=== PATIENT | female | born 1945 | race Caucasian/White ===

== ENCOUNTER → 2018-05-12 06:06 | Outpatient (CLI) | payer MEDICARE, OTHER, SELFPAY ==
--- NOTE | 2018-05-12 06:30 | MRI_ITS ---
STUDY: MRI BRAIN WITH AND WITHOUT CONTRAST (ATTENTION INTERNAL AUDITORY CANALS - I.A.C.'s) REASON FOR EXAM: Female, 72 years old. Bilateral tinnitus, right side worse than left. TECHNIQUE: Standardized multiplanar fat and water weighted pulse sequences were obtained. Gadavist 10 IV was administered for the contrast portion of the examination. COMPARISON: None. FINDINGS: Normal bilateral temporal bones. Normal bilateral internal auditory canals. There is no demonstrated intracanalicular or cisternal vestibular schwannoma (acoustic neuroma). There is no enhancement of the bilateral VIIth or VIIIth cranial nerves. Normal bilateral cochlea, vestibules and semicircular canals. Normal size of the ventricles and extra-axial spaces for the patient's age. View of subcortical and periventricular white matter T2 FLAIR hyperintensity foci in both cerebral hemispheres are chronic white matter ischemic changes. Normal bilateral basal ganglia. Normal thalami. Normal flow voids within the major intracranial circulation suggesting patency by spin echo criteria. Normal venous enhancement. There is no enhancing intra-axial or extra-axial abnormality. There is no extra-axial fluid accumulation. Normal sella turcica, pituitary gland, infundibular stalk, optic chiasm and hypothalamus. Normal tectal plate and pineal gland. Normal midbrain, joey and medulla. Normal cerebellum. Normal basal cisterns. No demonstrated orbital abnormality, within the constraints of a routine brain study. Normal visualized paranasal sinuses. Normal calvarium and skull base. Normal visualized soft tissue structures. Normal visualized upper cervical spine. MRI/Brain W/WO Contrast IMPRESSION: 1. Normal unenhanced and enhanced MRI of the bilateral internal auditory canals (I.A.C's). 2. Few chronic white matter ischemic changes in both cerebral hemispheres. Electronically Signed: Dino Johns MD at 13:18 EST , Service support ,
[2018-05-12 06:46] LABS: CREATININE FINGERSTICK 0.9 mg/dL (0.55-1.02); EGFR FINGERSTICK > 60.0000 mL/min (>60)
== END ==
PROVIDERS: Referring Provider Otolaryngology Otolaryngology/Facial Plastic Surgery; Visit Provider Otolaryngology Otolaryngology/Facial Plastic Surgery
DX: H93.12 Tinnitus, left ear (principal)
CPT/HCPCS: 70553; A9585

== ENCOUNTER → 2020-03-21 14:50 | Outpatient (CLI) | payer MEDICARE, OTHER, SELFPAY ==
[2019-03-01 12:35] VITALS: BMI 37.5
--- NOTE | 2020-03-21 15:57 | CT_ITS ---
STUDY: CT RIGHT LOWER EXTREMITY REASON FOR EXAM: Osteoarthritis, surgical planning for knee arthroplasty. TECHNIQUE: Transaxial CT imaging of the lower extremity was performed. Coronal and sagittal images were reformatted. Individualized dose optimization techniques were used for this CT. COMPARISON: None. FINDINGS: Knee: Normal medial femoral condyle and medial tibial plateau. There are very small marginal osteophytes of the medial femorotibial compartment with preservation of the articular joint space of the medial knee compartment. There is mild subchondral cystic change of the posterior aspect of the lateral tibial plateau. There are small marginal osteophytes with preservation of the articular joint space of the lateral knee compartment. There are marginal osteophytes with severe joint space narrowing of the lateral femorotibial compartment (axial image 271) with mild subchondral cystic change of the lateral patellar facet. Normal proximal tibiofibular articulation. There is no joint effusion. The quadriceps tendon is grossly normal. The patellar tendon is grossly normal. Normal Hoffa''s fat pad. There is incidental vacuum phenomenon in the medial femorotibial compartment. Hip: There is preservation of the left hip joint space. Ankle: There is preservation of the tibiotalar, posterior subtalar, talonavicular and calcaneocuboid joint spaces. There is orthopedic hardware in the visualized medial cuneiform. There is mild distal Achilles calcific tendinitis (sagittal reconstructions 44, 45). CT/Extremity Lower without Contra IMPRESSION: Patellofemoral osteoarthritis. Electronically Signed: Temo Gallardo MD at 15:31 EST Tel , Service support ,
== END ==
PROVIDERS: PCP Internal Medicine; Referring Provider Orthopaedic Surgery; Visit Provider Orthopaedic Surgery
DX: M17.11 Unilateral primary osteoarthritis, right knee (principal)
CPT/HCPCS: 73700

== ENCOUNTER 2020-04-08 10:49 | Inpatient (IN) | payer MEDICARE, OTHER, SELFPAY ==
[2019-03-01 12:35] VITALS: BMI 37.5
[2020-03-21 17:02] LABS: Absolute Lymphocyte Count 1.64 X10^3/uL (0.83-4.51); Absolute Neutrophil Count 3.1 X10^3/uL (2.0-7.7); Basophil# 0.04 X10^3/uL; Basophil% 0.7 % (0-1); Eosinophil# 0.16 X10^3/uL; Hematocrit 40.2 % (37-47); Hemoglobin 13.4 g/dL (12.0-15.0); Lymphocyte # 1.64 X10^3/ul (4.0); Lymphocyte % 30.4 % (19-41); Mean Corp Hgb Conc 33.3 g/dL (32-36); Mean Corpuscular Hgb 33.2 pg (27.0-32.0); Mean Corpuscular Volume 99.5 fL (81-99); Mean Platelet Vol. 8.9 fl (6.2-12.0); Monocyte# 0.43 X10^3/uL; NRBC Flagged by Analyzer 0 % (0-5); Neutrophil # 3.12 X10^3/uL (2.7-7.7); Neutrophil % 57.7 % (47-70); Platelet Count 251 K/mm3 (150-450); RBC Distribution Width CV 12.2 % (11.6-14.6); RBC Distribution Width SD 44.3 fl (35.1-43.9); Red Blood Count 4.04 M/mm3 (4.2-5.4); White Blood Count 5.4 K/mm3 (4.4-11.0)
[2020-03-21 17:37] LABS: Anion Gap 3 (5-15); BUN 16 mg/dL (7-18); BUN/Creat Ratio 22.3 RATIO (10-20); Calcium,Total 9.4 mg/dL (8.5-10.1); Chloride 106 mmol/L (98-107); Creatinine, Serum 0.72 mg/dL (0.55-1.02); EST Glomerular Filtration Rate 84 mL/min (>60); Est Glom Filt Rate - Afr Amer 102 mL/min (>60); Glucose 107 mg/dL (74-106); Potassium 3.8 mmol/L (3.5-5.1); Sodium Level 140 mmol/L (136-145)
--- NOTE | 2020-03-24 18:54 | PCM.HP.BLA ---
History and Physical History and Physical Patient Name: Bryanna Wolf : 1945 From: CRISTEL RAMIREZ NP DATE OF SURGERY: 04/08/2020 SCHEDULED PROCEDURE: Right total knee arthroplasty HISTORY OF PRESENT ILLNESS: Preoperative history and physical exam was performed on March 21, 2020. This is a 74-year-old female who has been experiencing bilateral knee pain for years. The right knee pain is greater than the left. The pain is made worse with stairs, walking and sitting for prolonged periods of time. The patient reports stumbling secondary to the right knee pain. The patient reports an inability to perform activities of daily living due to the right knee pain. The pain is 5 on a scale of 10 on average. She describes the pain as constant. Previous conservative measures attempted consist of rest, ice, heat and elevation. The patient has attempted cortisone and viscosupplementation injections with no relief. She has participated informal physical therapy. Patient has a history of a right knee arthroscopy [place] [address] Graham Coronel. The patient has a medical history pertinent for hiatal hernia, iron deficiency anemia, coronary artery disease, sleep apnea with use of a CPAP and hypertension. She has a history of ulcers. The patient is currently being treated by Dr. Ronquillo for posterior tibial tendinitis. She wears braces on bilateral lower extremities. The patient lives alone and her daughter has had a recent back surgery and is unable to assist in the care of the patient. She denies chest pain, fevers, chills, shortness of breath, difficulty breathing or recent infections. Surgical clearance has been obtained from Dr. Snyder and Dr. Hinton. After failing conservative measures and discussing treatment options with Dr. Graham Coronel the patient does wish to proceed with a right total knee arthroplasty. REVIEW OF SYSTEMS: ROS: Const: Denies anorexia, anxiety, change in appetite, fever and weight change,hard of hearing, and vision problems. CV: Denies chest pain, heart murmur, irregular heartbeat and peripheral vascular disease. Resp: Denies asthma, cough, pneumonia, sleep apnea, SOB, tuberculosis and wheezing. GI: Reports heartburn(hiatal hernia), but denies constipation, diarrhea, nausea, bloody stools and vomiting, and difficulty swallowing. : Urinary: reports stress incontinence. Musculo: Denies leg swelling, trouble walking and weakness and limp. Skin: Denies Raynaud's, history of shingles and tattoo. Neuro: Reports ambulatory dysfunction and numbness/tingling but denies dizziness and tremor. Psych: Denies anxiety, depression, insomnia, mental illness and stress. Foreign/Lymph: Reports anemia, but denies bleeding/bruising tendency and past transfusion. Reviewed, no changes. PAST MEDICAL HISTORY: Advance Care Plan: Other Directive, LIVING WILL Effective Date: 04/30/2015 Other Directive, POA Effective Date: 04/30/2015 PMH: Medical Problems: Hiatal Hernia Anemic - Iron deficiency Coronary Artery Disease (CAD) - possibly Sleep Apnea - CPAP High Blood Pressure Accidents: Fracture - (1999) AVULSION FX LEFT ANKLE Surgical Hx: Hysterectomy - (1993) [facility] Bladder Repair - 1993,1996 [facility], 2006 [facility] - (09/12/2007) DR CORONEL AT [facility] RT Foot Bunion Removed - AND TENDON REPAIR LT Achilles Tendon Repair - (08/2012) [facility] Carpal Tunnel Release RT Right Knee Arthroscopy - (07/07/2013) [facility] Anesthesia Complications: Vomiting Assistive Devices: Glasses, Brace - RIGHT KNEE BRACE Reviewed and updated. SOCIAL HISTORY: SH: Marital: .Occupation: Retired.Work Status: Retired.Hand Dominance: Right-Handed. Personal Habits: Cigarette Use: Never.Alcohol: Denies use.Drug Use: Denies Use.Enjoy Exercising: Never Exercises. Reviewed and updated. VITALS: Ht: 62 Wt: 209lb Wt k.802 BMI: 38.2 BP: 150/70 Pulse: 70 Resp: 16 T: 97.4 T: 36.3C ALLERGIES: NSAIDS - Acid Reflex Demerol - Vomiting Meloxicam MEDICATIONS: Tramadol HCL 50 mg 1-2 by mouth every 6 hours as needed pain, Prilosec 20 mg 1 tab 2x daily, Vitamin D 4000 Units 1 tab twice A week, Iron 60 mg 1po qday, Amlodipine Besylate 2.5 mg 1 by mouth every day, Rosuvastatin Calcium 20 mg 1 by mouth every day, Furosemide 20 mg prn, Zinc 30 mg 1po qday, Multivitamins 1po qday, Aspirin 81 81 mg 1 pill daily PRE-OP EXAM: General appearance:NORMAL Other: Eyes: Conjunctivae and lids: NORMAL Pupils: ERR Ears, Nose, Mouth, and Throat: NORMAL Other: Inspection of lips, teeth and gums: NORMAL Other: Respiratory: Assessment of respiratory effort: NORMAL Other: Auscultation of lungs: clear to auscultation no wheezes, rhonchi or rales. Cardiovascular: Auscultation of heart: regular rate and rhythm, no murmurs, gallops or rubs. Gastrointestinal: Exam of abdomen: soft, nontender, nondistended bowel sounds present. Neurological: see below Psychiatric: Orientation to time, place and person: NORMAL Other: Mood and affect: NORMAL Other: PHYSICAL EXAMINATION: Skin is warm, dry and intact. Trace effusion. Medial joint line pain with palpation. Varus deformity. Range of motion 0 extension to 120 flexion. Positive medial Vickie. Negative Helio. Stable to varus and valgus stress testing. Sensation intact to light touch. IMAGING STUDIES: X-rays of right knee including AP standing, lateral and skyline views were obtained on May 31, 2019 revealing moderate medial and lateral osteoarthritis. MRI of right knee obtained on January 11, 2020 reveals grade 3?4 chondromalacia and spurring of the patellofemoral joint. Chronic tear of the lateral meniscus and horizontal tear of the medial meniscus. Grade 2?3 chondromalacia of the medial compartment with spurring. IMPRESSION: 1. Posttraumatic osteoarthritis, right knee 2. Hypertension 3. Obstructive sleep apnea with use of a CPAP 4. Iron deficiency anemia 5. History of ulcers 6. Hiatal hernia 7. Coronary artery disease 8. Bilateral posterior tibial tendinitis PLAN: Dr. Graham Coronel did discuss and review with the patient all treatment options including surgical versus nonsurgical. The patient does wish to proceed with the above-stated procedure. Potential risk, benefits and complications of the procedure were discussed in detail including but not limited to , infection, nerve and blood vessel damage, persistent pain, numbness, tingling, paresthesia, blood clot, pulmonary embolism and requirement for possible further surgery. The patient expressed full understanding and has no further questions for the doctor. The patient does agree to proceed with the above-stated procedure and has signed the surgery consent form. The patient does live alone. Her daughter has had recent back surgery and is unable to assist in the care of the patient. The patient does wish to have placement in a rehab facility following surgery due to concerns in caring for herself. Discussed with the patient the risks associated with the COVID-19 virus including the risk of exposure while at the hospital. The patient was reassured local hospitals have low infection rates and taken all necessary precautions to limit patient exposure to COVID-19. Limiting the patient's time in the hospital may decrease their exposure to COVID-19. The patient was notified that we will need to comply with any screening or testing the hospital wishes to perform and that surgery may be delayed for any positive test results. This dictation was created using voice recognition software. Phonetic and/or grammatical errors may exist. ___ I have re-examined the patient. There are no clinical changes since date of exam. ___ See progress notes for changes. ___ Dictated on admission Date: Time: Signature:
--- NOTE | 2020-03-25 11:50 | NURSING ---
Pt verbalizes she wants to obtain mandatory preop COVID test at outside facility. Pt instructed get COVID test 04/04 afternon or 04/05 morning. Instructed to fax results to [phone] before Day of surgery. Instructed to call [phone] if unable to get outside COVID test and we will schedule her here. Pt verbalizes understanding.
[2020-03-25 13:18] LABS: Magnesium 2.3 mg/dL (1.6-2.6)
[2020-04-08] VITALS (11 sets, daily range): BP systolic 121–136; BP diastolic 47–68; PULSE 55–83; RESP 16–18; TEMP 36.2–36.9; O2SAT 95–100; BMI 38.8
--- NOTE | 2020-04-08 | KNEE_PTH ---
PATIENT: CRYSTAL GIL LOC: MS3 U#:[id number] AGE/SX: 74/F ROOM: [facility] [place] RE04/09/[address]: Dr. Graham Coronel DO : 1945 BED: 1 DIS: 04/10/2020 SPEC #: [id number] RECD: 04/08/20 14:16 STATUS: MARYURI REHelen #: [id number] MICHEAL: 04/08/20 00:[address]: Graham Coronel DEPT: SURGICAL PATHOLOGY RECD BY: Ismael Stevenson ENTERED: 04/09/20 07:47 SP TYPE: TOTAL KNEE OTHR DR: Dr. Johana Hinton MD Tissues: Knee, NOS Procedures: Decalcification bone/plaque Surgery Specimen Level IV HEADER OPERATION: ERAS, total knee replacement robotic arm assist PRE-OP DIAGNOSIS: Posttraumatic osteoarthritis right knee TISSUE SUBMITTED: Bone and soft tissue right knee MICROSCOPIC DIAGNOSIS Bone and soft tissue of right knee, total knee resection: Severe degenerative joint disease. Mild synovial hyperplasia. AM:liza 04/12/2020 MICROSCOPIC DESCRIPTION Slides are reviewed. GROSS DESCRIPTION Received is one container designated bone and soft tissue right knee. The specimen consists of multiple fragments of broderick-yellow bone measuring in aggregate 9 x 9 x 3 cm. Also in the specimen container are multiple fragments of yellow-white soft tissue measuring in aggregate 9 x 7 x 3 cm. A number of bony fragments contain articular surfaces consistent with tibial plateau and femoral condyle and displaying prominent osteophyte formation and bone erosion. Production Control Pegboard Clerk sections are submitted in two cassettes as follows: 1 - soft tissue, 2 - bone after decalcification. / SJ:liza 04/09/20 TC:5 CPT: 02460, 32208
[2020-04-08] MEDS: Acetaminophen 500 MG Tablet 1000 MG PO ×2 (10:46→20:54)
[2020-04-08] MEDS: Gabapentin 600 MG Tablet PO (10:47)
[2020-04-08] MEDS: Lactated Ringers 1,000 ML 125 ML IV ×2 (10:57→13:30)
[2020-04-08] MEDS: Cefazolin 2 GM in 0.9% Normal Saline 100 ML IV (11:25)
--- NOTE | 2020-04-08 13:10 | PCM.OPRPT ---
Report of Operation Date of Procedure: 04/08/20 Pre-Operative Diagnosis: OA right knee Post-Operative Diagnosis: same Surgery/Procedure Performed:: right TKR c.o.d. audit clerk: Galen Zimmerman Type of Anesthesia:: Spinal Anesthesiologist: Samy Hubbard Specimen's removed: bone Estimated Blood Loss (mL): 20 cc Fluids Replaced: 1000 ml crystalloid - Admit VTE Documentation VTE Present on Admission: No VTE Mechan Device Prophylaxis: SCD's, Thigh High SANDHYA Hose VTE Pharm Prophylaxis ordered?: Yes
--- NOTE | 2020-04-08 14:00 | RAD_ITS ---
STUDY: X-RAY - RIGHT KNEE REASON FOR EXAM: Female, 74 years old. Post op right knee TECHNIQUE: 2 view(s) of the knee. COMPARISON: None. FINDINGS: Normal visualized distal femur. Normal visualized proximal tibia and fibula. Normal proximal tibiofibular articulation. The patient is status post right total knee replacement. There is good alignment. Postoperative soft tissue changes. RAD/Knee 1 or 2 Views IMPRESSION: Status post total right knee replacement with postoperative soft tissue changes. There is good alignment. Electronically Signed: Miguel Chisholm MD at 14:12 EST , Service support ,
[2020-04-08 14:41] LABS: Hemoglobin 12.2 g/dL (12.0-15.0); Mean Corp Hgb Conc 32.1 g/dL (32-36); Mean Corpuscular Hgb 31.8 pg (27.0-32.0); Mean Platelet Vol. 8.3 fl (6.2-12.0); Platelet Count 301 K/mm3 (150-450); RBC Distribution Width CV 11.9 % (11.6-14.6); RBC Distribution Width SD 43.1 fl (35.1-43.9); Red Blood Count 3.84 M/mm3 (4.2-5.4); White Blood Count 6.6 K/mm3 (4.4-11.0)
[2020-04-08 14:54] LABS: Anion Gap 7 (5-15); BUN 11 mg/dL (7-18); BUN/Creat Ratio 15.8 RATIO (10-20); Chloride 108 mmol/L (98-107); EST Glomerular Filtration Rate 87 mL/min (>60); Est Glom Filt Rate - Afr Amer 106 mL/min (>60); Estimated Creatinine Clearance 38.44 ml/min; Glucose 104 mg/dL (74-106); Potassium 4.2 mmol/L (3.5-5.1); Sodium Level 144 mmol/L (136-145)
[2020-04-08] MEDS: Lactated Ringers 1,000 ML 100 ML IV (16:15)
[2020-04-08] MEDS: Aspirin 81 MG TAB.CHEW PO (16:59)
[2020-04-08] MEDS: oxyCODONE 5 MG Tablet PO (16:59)
[2020-04-08] MEDS: Cefazolin 1 GM/50 ML BAG IV (19:34)
[2020-04-08] MEDS: Senna/Docusate Sodium 1 Tablet 2 TABLET PO (20:54)
[2020-04-09] MEDS: Cefazolin 1 GM/50 ML BAG IV (03:12)
[2020-04-09 03:14] VITALS: BP 105/80; PULSE 56; RESP 18; TEMP 36.1; O2SAT 100
[2020-04-09] MEDS: oxyCODONE 5 MG Tablet PO ×5 (03:20→22:09)
[2020-04-09] MEDS: Acetaminophen 500 MG Tablet 1000 MG PO ×3 (05:45→21:41)
[2020-04-09 06:50] LABS: Hematocrit 38.6 % (37-47); Hemoglobin 12.3 g/dL (12.0-15.0); Mean Corp Hgb Conc 31.9 g/dL (32-36); Mean Corpuscular Hgb 31.5 pg (27.0-32.0); Mean Corpuscular Volume 98.7 fL (81-99); Mean Platelet Vol. 8.5 fl (6.2-12.0); Platelet Count 298 K/mm3 (150-450); RBC Distribution Width CV 11.9 % (11.6-14.6); RBC Distribution Width SD 43.4 fl (35.1-43.9); Red Blood Count 3.91 M/mm3 (4.2-5.4); White Blood Count 7.3 K/mm3 (4.4-11.0)
[2020-04-09 07:12] LABS: Anion Gap 6 (5-15); BUN 10 mg/dL (7-18); BUN/Creat Ratio 13.1 RATIO (10-20); Calcium,Total 8.5 mg/dL (8.5-10.1); Chloride 106 mmol/L (98-107); Creatinine, Serum 0.76 mg/dL (0.55-1.02); EST Glomerular Filtration Rate 78 mL/min (>60); Est Glom Filt Rate - Afr Amer 95 mL/min (>60); Estimated Creatinine Clearance 38.44 ml/min; Glucose 106 mg/dL (74-106); Potassium 3.7 mmol/L (3.5-5.1); Sodium Level 139 mmol/L (136-145)
[2020-04-09 07:30] LABS: Bedside Glucose 98 mg/dL (70-110)
[2020-04-09] MEDS: Pantoprazole Sodium 20 MG Tablet PO (07:47)
[2020-04-09] MEDS: Aspirin 81 MG TAB.CHEW PO ×2 (07:48→17:16)
--- NOTE | 2020-04-09 07:57 | PN.ORTHO_ITS ---
Subjective: Patient sitting at bedside eating breakfast. Patient's pain is very well managed. Patient denies chest pain, shortness of breath, calf pain, or nausea vomiting. Patient has no other complaints. Patient states she is requesting inpatient rehab. No other complaints at this time. Objective: Dressing is clean dry intact. Negative signs and symptoms of DVT. Vital signs and labs reviewed and noted in the medical record. Patient is afebrile. Patient in no respiratory distress, speaking in full sentences. - Physical Exam Vitals/I&O's: Vital Signs Temp Pulse Resp BP Pulse Ox 97.0 F L 56 L 18 105/80 100 04/09/20 03:14 04/09/20 03:14 04/09/20 03:14 04/09/20 03:14 04/09/20 03:14 Oxygen Flow Rate (L/min) 2 Oxygen Delivery Method CPAP Weight: 96.3 kg Body Mass Index (BMI) 38.8 Intake and Output for Last 24 Hours 04/07/20 04/08/20 04/09/20 23:59 23:59 23:59 Intake Total 3669.25 / 3669.25 139 / 139 Balance 3669.25 / 3669.25 139 / 139 General: Alert, Oriented x3, Cooperative HEENT: PERRLA Oral: Moist Mucosa Neurological: Cranial nerves II-XII grossly intact Psych/Mental Status: Normal Affect, Alert and oriented to time, place, person, mood and affect Laboratory Results 04/08/20 10:33: POC Glucose 98 04/08/20 14:28: WBC 6.6, RBC 3.84 L, Hgb 12.2, Hct 38.0, MCV 99.0, MCH 31.8, MCHC 32.1, RDW Std Deviation 43.1, RDW Coeff of Delmar 11.9, Plt Count 301, MPV 8.3 04/08/20 14:28: Sodium 144, Potassium 4.2, Chloride 108 H, Carbon Dioxide 29.0, Anion Gap 7, BUN 11, Creatinine 0.70, Estim Creat Clear Calc 38.44, Est GFR (MDRD) Af Amer 106, Est GFR (MDRD) Non-Af 87, BUN/Creatinine Ratio 15.8, Glucose 104, Calcium 9.0 04/09/20 06:42: WBC 7.3, RBC 3.91 L, Hgb 12.3, Hct 38.6, MCV 98.7, MCH 31.5, MCHC 31.9 L, RDW Std Deviation 43.4, RDW Coeff of Delmar 11.9, Plt Count 298, MPV 8.5 04/09/20 06:42: Sodium 139, Potassium 3.7, Chloride 106, Carbon Dioxide 27.0, Anion Gap 6, BUN 10, Creatinine 0.76, Estim Creat Clear Calc 38.44, Est GFR (MDRD) Af Amer 95, Est GFR (MDRD) Non-Af 78, BUN/Creatinine Ratio 13.1, Glucose 106, Calcium 8.5 Current Medications Acetaminophen (Acetaminophen 500 Mg Tablet) 1,000 mg PO Q8 [facility] Last Admin: 04/09/20 05:45 Dose: 1,000 mg Documented by: Aspirin (Aspirin 81 Mg Tab.Chew) [facility] Last Admin: 04/09/20 07:48 Dose: 81 mg Documented by: Ondansetron HCl (Ondansetron 4 Mg/2 Ml Vial) 4 mg IV Q8H PRN PRN PRN Reason: NAUSEA Oxycodone HCl (Oxycodone 5 Mg Tablet) 5 - 10 mg PO Q4H PRN PRN PRN Reason: Pain Score 4-10 Last Admin: 04/09/20 07:47 Dose: 10 mg Documented by: Pantoprazole Sodium (Pantoprazole Sodium 20 Mg Tablet) 20 mg PO DAILY [facility] Last Admin: 04/09/20 07:47 Dose: 20 mg Documented by: Promethazine HCl (Promethazine 25 Mg/Ml Syringe) 12.5 mg IM Q6H PRN PRN; Protocol PRN Reason: NAUSEA/VOMITING Senna/Docusate Sodium (Senna/Docusate Sodium 1 Tablet) 2 tablet PO BID [facility] Last Admin: 04/08/20 20:54 Dose: 2 tablet Documented by: Sodium Chloride (0.9% Saline Lock 10 Ml Syringe) 10 - 40 ml IV UD PRN PRN Reason: SALINE FLUSH Medical Necessity - Tobacco Use Smoking Status: Never smoker Assessment/Plan All Active Problems (Last Updated 03/01/19 @ 12:33 by Beata Diaz) Exertional chest pain (Acute) Status post right total knee arthroplasty Plan 1. Continue all pain medications as prescribed 2. Continue physical therapy today, weight-bear as tolerated with walker 3. Aspirin 81 mg 1 p.o. every 12 hours x30 days for postop DVT prophylaxis 4. Encourage incentive spirometry 5. Possible placement for inpatient rehab tomorrow
[2020-04-09 08:15] VITALS: O2SAT 98
[2020-04-09 08:30] VITALS: BP 130/54; PULSE 70; RESP 18; TEMP 36.8; O2SAT 98
--- NOTE | 2020-04-09 10:13 | CASEMGMT ---
Addendum entered by Geraldine Mccallum 04/09/20 11:03: RAYSA received message from Marly in [facility] stating [facility] is able to accept pt tomorrow. RAYSA updated RN CM who will update pt. RN CM to provide pt with list of inpatient rehab facility providers including quality and resource use data and consistent with the patient?s preferred geographic region, medical needs, and insurance network. The patient?s preferred provider is [facility]. Plan: [facility] tomorrow Original Note: Social Work Note RAYSA updated that pt is requesting inpatient rehab at discharge. RAYSA placed a call to [facility] with referral line and provided referral. [facility] physician to review referral. Geraldine Mccallum DIE TESTER, CREDENTIALING SPECIALIST
[2020-04-09] MEDS: Senna/Docusate Sodium 1 Tablet 2 TABLET PO ×2 (10:22→21:41)
--- NOTE | 2020-04-09 11:05 | CASEMGMT ---
KATELYN BEE Face to Face with patient for initial transition planning/care coordination assessment. RN CM introduced self and role at [facility]. Patient sitting in chair, alert and oriented. Patient willing to participate in assessment and is able to answer all questions appropriately. Care providers, pharmacy, and demographics verified. Patient wishes to discharge to inpatient rehab unit at [facility]. KATELYN BEE updated RAYSA Mccallum regarding rehab request. Patient states he has no further needs or concerns at this time. CM to follow for discharge planning needs that may arise. PCP: Nikhil Specialists: sary Coronel Preferred Pharmacy: [facility]. Insurance: [employer] Prescription Benefit: yes Living Will/HPOA: yes, daughter Juana Wolf LNOK: daughter Living Arrangements: Patient lives alone in a 2 story home with bed and bath on the first floor. Patient states she is independent at home prior to surgery Transportation: self/daughter DME/HHC: Patient states she has shower chair, BSC, grab bars, hip kit, walker, rollator, and cpap. Patient denies previous HHC or SNF. Disposition Plan: Inpatient rehab pending acceptance and medically ready. Geraldine CLAROS, RN, CM
[2020-04-09 15:12] VITALS: BP 142/51; PULSE 78; RESP 18; TEMP 36.2; O2SAT 98
[2020-04-09] MEDS: Multivitamins,Therapeutic Tablet 1 TABLET PO (17:16)
[2020-04-09] MEDS: Ferrous Sulfate 325 MG Tablet PO (17:17)
[2020-04-09 18:52] VITALS: O2SAT 98
[2020-04-09 21:20] VITALS: BP 130/61; PULSE 72; RESP 18; TEMP 36.8; O2SAT 96
[2020-04-09] MEDS: Atorvastatin Calcium 40 MG Tablet PO (21:41)
[2020-04-10] MEDS: oxyCODONE 5 MG Tablet PO ×3 (02:11→10:22)
[2020-04-10 02:36] VITALS: BP 124/54; PULSE 73; RESP 18; TEMP 37.6; O2SAT 98
[2020-04-10] MEDS: Acetaminophen 500 MG Tablet 1000 MG PO (06:08)
[2020-04-10 06:56] VITALS: O2SAT 91
[2020-04-10 09:05] VITALS: BP 130/75; PULSE 71; RESP 16; TEMP 36.9; O2SAT 96
[2020-04-10] MEDS: Aspirin 81 MG TAB.CHEW PO (09:12)
[2020-04-10] MEDS: Multivitamins,Therapeutic Tablet 1 TABLET PO (09:13)
[2020-04-10] MEDS: Senna/Docusate Sodium 1 Tablet 2 TABLET PO (09:13)
[2020-04-10] MEDS: Ferrous Sulfate 325 MG Tablet PO (09:13)
[2020-04-10] MEDS: amLODIPine 2.5 MG Tablet PO (09:13)
--- NOTE | 2020-04-10 09:48 | PN.ORTHO_ITS ---
Subjective: Patient sitting at bedside, states her knee is painful but has been well managed. Patient denies chest pain, shortness of breath, calf pain, nausea vomiting. Patient has no other complaints at this time. Patient states she is ready to go to the [facility] for for rehab to begin her postoperative rehab. Objective: Dressings clean dry intact. Negative signs or symptoms of DVT. Vital signs labs were all reviewed noted in the medical record. Patient is afebrile. Patient is in no respiratory distress, speaking in full sentences. Patient is neurovascular otherwise intact. - Physical Exam Vitals/I&O's: Vital Signs Temp Pulse Resp BP Pulse Ox 99.6 F H 73 18 124/54 H 91 04/10/20 02:36 04/10/20 02:36 04/10/20 02:36 04/10/20 02:36 04/10/20 06:56 Oxygen Flow Rate (L/min) 2 Oxygen Delivery Method Room Air Weight: 96.3 kg Body Mass Index (BMI) 38.8 Intake and Output for Last 24 Hours 04/08/20 04/09/20 04/10/20 23:59 23:59 23:59 Intake Total 3669.25 / 3669.25 989 / 1389 700 / 700 Balance 3669.25 / 3669.25 989 / 1389 700 / 700 General: Alert, Oriented x3, Cooperative HEENT: PERRLA Oral: Moist Mucosa Neurological: Cranial nerves II-XII grossly intact Psych/Mental Status: Normal Affect, Alert and oriented to time, place, person, mood and affect Current Medications Acetaminophen (Acetaminophen 500 Mg Tablet) 1,000 mg PO Q8 [facility] Last Admin: 04/10/20 06:08 Dose: 1,000 mg Documented by: Amlodipine Besylate (Amlodipine 2.5 Mg Tablet) 2.5 mg PO DAILY [facility] Last Admin: 04/10/20 09:13 Dose: 2.5 mg Documented by: Aspirin (Aspirin 81 Mg Tab.Chew) 81 mg PO BIDCM [facility] Last Admin: 04/10/20 09:12 Dose: 81 mg Documented by: Atorvastatin Calcium (Atorvastatin Calcium 40 Mg Tablet) 40 mg PO QHS [facility] Last Admin: 04/09/20 21:41 Dose: 40 mg Documented by: Ferrous Sulfate (Ferrous Sulfate 325 Mg Tablet) 325 mg PO BID@1200,1700 [facility] Last Admin: 04/10/20 09:13 Dose: 325 mg Documented by: Multivitamins ([facility],Therapeutic [facility]t) [facility] Last Admin: 04/10/20 09:13 Dose: 1 tablet Documented by: Ondansetron HCl (Ondansetron 4 Mg/2 Ml Vial) 4 mg IV Q8H PRN PRN PRN Reason: NAUSEA Oxycodone HCl (Oxycodone 5 Mg Tablet) 5 - 10 mg PO Q4H PRN PRN PRN Reason: Pain Score 4-10 Last Admin: 04/10/20 06:08 Dose: 10 mg Documented by: Promethazine HCl (Promethazine 25 Mg/Ml Syringe) 12.5 mg IM Q6H PRN PRN; Protocol PRN Reason: NAUSEA/VOMITING Senna/Docusate Sodium (Senna/Docusate Sodium 1 Tablet) 2 tablet PO BID [facility] Last Admin: 04/10/20 09:13 Dose: 2 tablet Documented by: Sodium Chloride (0.9% Saline Lock 10 Ml Syringe) 10 - 40 ml IV UD PRN PRN Reason: SALINE FLUSH Medical Necessity - Tobacco Use Smoking Status: Never smoker Assessment/Plan All Active Problems (Last Updated 03/01/19 @ 12:33 by Beata Diaz) Exertional chest pain (Acute) Status post right total knee arthroplasty Plan 1. Continue all pain medications as prescribed 2. Continue physical therapy, weight-bear as tolerated with walker 3. Aspirin 81 mg 1 p.o. every 12 hours x30 days for postop DVT prophylaxis 4. Encourage incentive spirometry 5. Patient be discharged and admitted to [facility] for for rehab today 6. Patient will follow up with Harrison Caballero PA-C as scheduled, see pink sheet.
--- NOTE | 2020-04-10 09:57 | DCINST_ITS ---
Discharge Diet: No Restrictions Discharge Activity: May Not Drive, May Shower, Use Walker May shower in (days): 3 Ice area for (Minutes): 20 - each hour while awake. Weight Bearing Status: Weight bearing as tolerated Elevate: Operative Extremity Additional Activity Instructions:: Wear elastic stockings for 2 weeks after your surgery. Call your doctor if your incision/area has: Continuous Slow Oozing, Sudden Increased Bleeding, Increased Pain/ Swelling, Increased Redness, Foul Smelling Discharge Call your doctor if you observe: Fever of 101 or Higher, Coldness, Increased Pain - in extremity, Numbness or Tingling, Change in Color, Calf discomfort, Uncontrolled pain Change Dressing in (Days):: 0 - and daily as needed. Remove Dressing in (days):: 8 Cleanse incision/area with: Soap & Water Additional Dressing/Incision Instructions:: Remove katie 04-22-2020 Allergies/Adverse Reactions: Allergies meperidine Adverse Reaction (Verified 03/25/20 10:49) GI Upset NSAIDS (Non-Steroidal Anti-Inflamma Adverse Reaction (Verified 03/25/20 10:49) GI Upset Medications to take at Discharge cyclobenzaprine 10 mg tablet 10 mg PO PRN PRN 03/01/19 ferrous sulfate 325 mg (65 mg iron) tablet,delayed release 325 mg PO BID tab 03/01/19 melatonin 10 mg capsule 10 mg PO HS 03/01/19 omeprazole 20 mg capsule,delayed release 20 mg PO DAILY 03/01/19 zinc gluconate 30 mg tablet 30 mg PO DAILY 03/01/19 Amlodipine [Norvasc] 2.5 mg PO DAILY 03/25/20 Cholecalciferol (Vitamin D3) [Vitamin D3] 15 ml PO DAILY 03/25/20 Multivitamin 1 ea PO BID 03/25/20 Rosuvastatin Calcium 20 mg PO QHS 03/25/20 Acetaminophen [Tylenol] 1,000 mg PO Q8 tablet 04/10/20 Aspirin [Aspirin, Baby] 81 mg PO BIDCM tab.chew 04/10/20 Ondansetron [Zofran] 4 mg IV Q8H PRN PRN vial 04/10/20 Oxycodone [Oxyir] 5 - 10 mg PO Q4H PRN PRN 7 Days #84 tab 04/10/20 Senna/Docusate Sodium [Senokot-S] 2 tablet PO BID tablet 04/10/20 The following prescriptions were given: Oxycodone [Oxyir] 5 - 10 mg PO Q4H PRN PRN 7 Days #84 tab PRN Reason: Pain Score 4-10 Prescription Printed Primary Care Physician: Johana Hinton MD [Primary Care Provider] - Test Results: Test results from this visit will be discussed in further detail at your follow- up appointment, if applicable. Please Follow Up With: Galen Zimmerman PA-C When: as scheduled (see pink sheet)
--- NOTE | 2020-04-10 10:06 | CASEMGMT ---
Social Work Note Pt is discharging to today. SW in to speak with pt. SW introduced self and role at [facility]. Pt is alert and orientated. SW updated pt that she will be discharged to today. Pt states understanding, denied additional needs or concerns at this time. RAYSA placed a call to Marly with and updated her pt will be discharged to today. Plan: today Geraldine Mccallum GAMING COMMISSIONER, COYOTE HUNTER
== END 2020-04-10 11:21 | DRG 470 ==
LOC: MS3 10:49 → SDC 11:38 → MS3 11:38
PROVIDERS: Anesthesiology; Admitting Provider Orthopaedic Surgery; PCP Internal Medicine; Referring Provider Orthopaedic Surgery; Visit Provider Orthopaedic Surgery
PROC: 0SRC0JZ Replacement of Right Knee Joint with Synthetic Substitute, Open Approach (ICD-10-PCS; CPT 27447; principal; 2020-04-08 11:30)
DX: M17.31 Unilateral post-traumatic osteoarthritis, right knee (principal); I10 Essential (primary) hypertension; G47.33 Obstructive sleep apnea (adult) (pediatric); D50.9 Iron deficiency anemia, unspecified; I25.10 Atherosclerotic heart disease of native coronary artery without angina pectoris; M76.829 Posterior tibial tendinitis, unspecified leg; K44.9 Diaphragmatic hernia without obstruction or gangrene; K21.9 Gastro-esophageal reflux disease without esophagitis; Z20.822 Contact with and (suspected) exposure to COVID-19
CPT/HCPCS: 36415; 73560; 80048; 82962; 83735; 85025; 85027; 87081; 87426; 88305; 88311; 97110; 97116; 97162; 97166; 97530; 97535; 99251; C1776; C9803; J7120; G0463; J2405

== ENCOUNTER 2020-04-10 11:46 | Inpatient (IN) | payer MEDICARE, OTHER, SELFPAY ==
[2020-04-08 10:28] VITALS: BMI 38.8
[2020-04-10 11:53] VITALS: BP 138/61; PULSE 80; RESP 16; TEMP 37.7; O2SAT 97; BMI 40.2
--- NOTE | 2020-04-10 12:39 | HP.PCM_ITS ---
Problem List (1) Physical debility Status: Acute Comment: due to R TKA on 04/08/[address] Coronel (2) Hypertension Status: Chronic Qualifiers: Hypertension type: essential hypertension Qualified Code(s): I10 - Essential (primary) hypertension (3) Coronary artery disease Status: Chronic Qualifiers: [place] vs. transplanted heart: [place] heart Associated angina: without angina Comment: non-obstructive in the LAD on a cardiac cath (4) VERONIKA (obstructive sleep apnea) Status: Chronic Comment: has CPAP (5) Hiatal hernia Status: Chronic (6) GERD (gastroesophageal reflux disease) Status: Chronic (7) Obesity (BMI 30-39.9) Status: Chronic (8) Osteoarthritis Status: Chronic Qualifiers: Osteoarthritis location: knee Laterality: bilateral (9) History of peptic ulcer disease Status: Chronic (10) Posterior tibial tendinitis of both lower extremities Status: Acute Comment: has braces for both feet/ankle. Treated by Dr. Ronquillo. (11) Hyperlipidemia Status: Chronic Comment: She is on Rosuvastatin History of Present Illness Date of Admission: 04/10/20 Chief Complaint: Debility due to OA with recent R TKA on 04/08/20. She lives alone and is having pain which limits her ability to care for herself and ambulate. Bryanna Wolf is a 74 year old F with a past medical history of hypertension, hyperlipidemia, nonobstructive coronary artery disease in the LAD, obstructive sleep apnea on CPAP, obesity, hiatal hernia, GERD, history of peptic ulcer disease bilateral posterior tibial tendinitis and osteoarthritis who underwent a right total knee replacement on 04/08/[address] Graham Coronel. Postoperative course was unremarkable. She is admitted to the inpatient acute rehab unit at [facility] on 04/10/2028 for greater than 3 hours of therapy daily to restore her after or near her prior level of function. Prior to surgery she ambulated without an assistive device, drove and completed all her basic self-care and home management tasks. She has children in the area but, they are not able to provide care at home at this time due to their own medical problems. [] Past Medical History Past Medical History (Chronic Problems): Chronic Problems (Last Updated 03/01/19 @ 12:33 by Beata Diaz) Hypertension (Chronic) Coronary artery disease (Chronic) non-obstructive in the LAD on a cardiac cath VERONIKA (obstructive sleep apnea) (Chronic) has CPAP Hiatal hernia (Chronic) GERD (gastroesophageal reflux disease) (Chronic) Obesity (BMI 30-39.9) (Chronic) Osteoarthritis (Chronic) History of peptic ulcer disease (Chronic) Elevated blood pressure reading without diagnosis of hypertension (Chronic) Chest pain (Chronic) Premature ventricular contractions (Chronic) Hyperlipidemia (Chronic) She is on Rosuvastatin Medical History: Medical History (Last Reviewed 04/11/20 @ 11:[address] Margo Rojas, DO) Elevated blood pressure reading without diagnosis of hypertension (Chronic) R03.0 Hyperlipidemia (Chronic) E78.5 She is on Rosuvastatin Eczema L30.9 GERD (gastroesophageal reflux disease) K21.9 Hiatal hernia K44.9 Iron deficiency anemia D50.9 Obstructive sleep apnea G47.33 Osteopenia M85.80 Stress incontinence N39.3 Allergies meperidine Adverse Reaction (Verified 03/25/20 10:49) GI Upset NSAIDS (Non-Steroidal Anti-Inflamma Adverse Reaction (Verified 03/25/20 10:49) GI Upset Home Medications: Ambulatory Orders Medication Instructions Recorded cyclobenzaprine 10 mg tablet 10 mg PO PRN PRN 03/01/19 ferrous sulfate 325 mg (65 mg 325 mg PO BID tab 03/01/19 iron) tablet,delayed release melatonin 10 mg capsule 10 mg PO HS 03/01/19 omeprazole 20 mg capsule,delayed 20 mg PO DAILY 03/01/19 release zinc gluconate 30 mg tablet 30 mg PO DAILY 03/01/19 Amlodipine [Norvasc] 2.5 mg PO DAILY 03/25/20 Cholecalciferol (Vitamin D3) 15 ml PO DAILY 03/25/20 [Vitamin D3] Multivitamin 1 ea PO BID 03/25/20 Rosuvastatin Calcium 20 mg PO QHS 03/25/20 Acetaminophen [Tylenol] 1,000 mg PO Q8 04/10/20 Aspirin [Aspirin, Baby] 81 mg PO BIDCM 04/10/20 Ondansetron [Zofran] 4 mg PO Q8H PRN PRN 04/10/20 Oxycodone [Oxyir] 5 - 10 mg PO Q4H PRN PRN 7 Days 04/10/20 #84 tab Senna/Docusate Sodium [Senokot-S] 2 tab PO BID 04/10/20 Surgical History: Surgical History (Last Reviewed 04/11/20 @ 11:[address] Margo Rojas DO) H/O arthroscopic knee surgery Z98.890 History of Achilles tendon repair Z98.890 History of bilateral salpingo-oophorectomy Z90.79, Z90.722 History of bladder suspension procedure Z98.890, Z87.448 History of bunionectomy Z98.890 History of hysterectomy Z90.710 Surgical History: total knee arthroplasty - R on 04/08/20 Psychiatric History: No pertinent psych hx HAIRMASTERS MANAGER History: No pertinent HAIRMASTERS MANAGER history Lives: Alone Smoking Status: Never smoker Tobacco Use: Non-smoker Alcohol: None Drugs: None - *Family History Maternal Family History: Family History (Last Reviewed 04/11/20 @ 11:[address] Margo Rojas DO) Other Cancer Diabetes Paternal Family History: Family History (Last Reviewed 04/11/20 @ 11:[address] Margo oRjas DO) Other Cancer Diabetes Review of Systems Constitutional: Denies: Anorexia, Chills, Fever, Weight Change Eyes: Denies: Vision Change HEENT: Denies: Difficulty Hearing, Difficulty Swallowing, Head Aches, Nasal Co ngestion, Sinus Congestion, Sinus Drainage, Sore Throat Cardiovascular: Denies: Chest Pain, Chest Tightness, Light Headedness, Orthopnea, Palpitations, Paroxysmal Noc. Dyspnea, Syncope Respiratory: Reports: Shortness of breath upon exertion. Denies: Cough, Shortness of Breath, Shortness of breath at rest, Sputum production Gastrointestinal: Denies: Abdominal Pain, Constipation, Diarrhea, Nausea, Vomiting Genitourinary: Reports: Incontinence - urge incontinence. Denies: Dysuria Gynecological: Denies: Breast symptoms, Vaginal discharge Musculoskeletal: Reports: Joint Pain - R knee - she is S/P R TKA. Denies: Joint Tenderness Skin: Denies: Jaundice, Rash, Wounds Neurological: Denies: Balance problems, Change in Speech, Slurred speech, Confusion, Focal weakness, Numbness, Tingling, Tremor, Seizures Psychiatric: Denies: Anxiety, Depression, Homicidal Ideations, Suicidal Ideations Endocrine: Denies: Change in Body Habitus, Hx of Thyroiditis Hematologic/ Lymphatic: Denies: Easy Bruising, Easy Bleeding, Hx of blood clot VTE Information - Inpt Only VTE Present on Admission: No VTE Mechan Device Prophylaxis: Knee High SANDHYA Hose VTE Pharm Prophylaxis ordered?: Yes Patient Problems: Active and Suspected Problems (Last Updated 03/01/19 @ 12:33 by Beata Diaz) Physical debility (Acute) due to R TKA on 04/08/[address] Coronel Posterior tibial tendinitis of both lower extremities (Acute) has braces for both feet/ankle. Treated by Dr. Ronquillo. - Physical Exam Vitals/I&O's: Vital Signs Temp Pulse Resp BP Pulse Ox 99.9 F H 80 16 138/61 H 97 04/10/20 11:53 04/10/20 11:53 04/10/20 11:53 04/10/20 11:53 04/10/20 11:53 Oxygen Delivery Method Room Air Weight: 220 lb 0.341 oz Body Mass Index (BMI) 40.2 General: Alert, Oriented x3, Cooperative, No apparent distress, Well developed, Well nourished, - - lying in bed and appears in NAD HEENT: Atraumatic, PERRLA, EOMI, Normocephalic Oral: No Gingival or Mucosal Lesions/ Ulcerations, Dry Mucosa Neck: Supple, No JVD, Negative Carotid Bruits, No Nodes, Trachea Midline Lungs: Clear to auscultation, Normal air movement, No rhonchi, No wheeze, No rales Cardiovascular: Regular rate, Regular Rhythm, Normal S1, Normal S2, No murmurs, No rub noted, No Gallop Abdomen: Bowel Sounds Present, Soft, Non Tender, Non-Distended, Obese Extremities: No clubbing, No cyanosis, Capillary Refill Less than 3 Seconds, No Calf Tenderness, Edema - of the RLE due to recent R TKA, Peripheral Pulses Normal Skin: No rashes, No breakdown, Incision - The silver dressing is still in place - will examine the incision when the dressing is next changed. Musculoskeletal: No Tenderness to Palpation of Joints or Extremities, No Muscle Wasting, Arthritic Changes Neurological: Cranial nerves II-XII grossly intact, Neuro grossly intact Psych/Mental Status: Normal Affect, Appropriate Current Medications Acetaminophen (Acetaminophen 500 Mg Tablet) 1,000 mg PO Q8 [facility] Amlodipine Besylate (Amlodipine 2.5 Mg Tablet) 2.5 mg PO DAILY [facility] Aspirin (Aspirin 81 Mg Tab.Chew) 81 mg PO BIDCM [facility] Bisacodyl (Bisacodyl 10 Mg Suppository) 10 mg RECTAL .PRN X 1 PRN PRN Reason: Constipation Cyclobenzaprine HCl (Cyclobenzaprine Hcl 10 Mg Tablet) 5 - 10 mg PO PRN PRN PRN Reason: muscle discomfort Magnesium Hydroxide (Magnesium Hydroxide 30 Ml Udc) 30 ml PO .PRN X 1 PRN PRN Reason: Constipation Non-Formulary Medication (Cholecalciferol (Vitamin D3) [Vitamin D3]) 15 ml PO DAILY [facility] Non-Formulary Medication (Ferrous Sulfate) 325 mg PO BID [facility] Non-Formulary Medication (Multivitamin) 1 ea PO BID [facility] Non-Formulary Medication (Omeprazole) 20 mg PO DAILY [facility] Non-Formulary Medication (Rosuvastatin Calcium) 20 mg PO QHS [facility] Non-Formulary Medication (Zinc Gluconate [Zinc]) 30 mg PO DAILY [facility] Ondansetron HCl (Ondansetron 8 Mg Tablet) 4 mg PO Q8H PRN PRN PRN Reason: NAUSEA Oxycodone HCl (Oxycodone 5 Mg Tablet) 5 - 10 mg PO Q4H PRN PRN PRN Reason: Pain Score 4-10 Senna/Docusate Sodium (Senna/Docusate Sodium 1 Tablet) 2 tablet PO BID KIYA Trazodone HCl (Trazodone 50 Mg Tablet) 50 mg PO QHS PRN PRN Reason: INSOMNIA Assessment/Plan All Active Problems (Last Updated 03/01/19 @ 12:33 by Beata Diaz) Physical debility (Acute) Posterior tibial tendinitis of both lower extremities (Acute) Exertional chest pain (Acute) Impressions 1. Physical debility secondary to severe osteoarthritis right knee with recent right total knee arthroplasty on 04/08/2020. 2. Status post right total knee replacement on 04/08/2020 3. Hypertension 4. Hyperlipidemia 5. Nonobstructive coronary artery disease in the LAD found on cardiac catheterization 6. Obstructive sleep apnea on CPAP 7. Hiatal hernia with GERD 8. History of peptic ulcer disease 9. Eczema 10. Osteoarthritis 11. Obesity 12. Bilateral posterior tibial tendinitis PLAN PT for gait stability OT for ADL's ST for evaluation Analgesics as needed Bowel protocol Fall precautions Assess for Anxiety/Depression GI prophylaxis with omeprazole DVT prophylaxis with 81 mg of aspirin twice daily Follow up with PCP and Dr. Graham Coronel following DC from Rehab Inpatient E&M: 37663 Init Hosp L2
--- NOTE | 2020-04-10 12:39 | PCM.RU.PYE ---
Admission Information Primary Diagnosis:: Debility secondary to recent right total knee replacement Status Changes from Prescreening?: No changes Identified Actual Problem List:: Skin Intergrity, Pain, ALteration in Cmfrt, Bladder Incontinence - urge incontinence, Alteration in Sleep, Mobility Impaired, Self Care Deficit, Alteration-Leisure Activ. Potential Problem List:: DVT, Bleeding, Infection, UTI, Aspiration, Falls, Skin Integrity, Depression Risk of Complications DVT: SANDHYA Ware, - - ASA 81 mg BID Bleeding: Monitor Lab Values, Nursing to Teach Precautions for anti-coagulation therapy., Wound, if applicable, to be assessed every shift., Stroke patients assessed for lethargy or change in status. Infection: Clinical Staff to Monitor for S/S of infection:, S/S of infection include fever, redness, warmth, etc. Urinary Tract Infection: Monitor for frequency, burning, discomfort, or incontinence., Nursing will obtain urine sample for urinalysis and C&S when ordered. Aspiration: Clinical staff will monitor for coughing, drooling, congestion., Speech will evaluate swallowing and dsyphasia., Nursing will monitor patient swallowing during meals. Falls: Patient will be evaluated for Fall Precautions, Patient will be placed on Fall Precautions as indicated per protocol. Skin Breakdown: Nursing will assess skin daily using assessment tool., Nursing will place on Skin Breakdown Precautions as indicated. Pain: Clinical staff will assess patient's pain level per protocol., Medications will be given, if needed, and the pain level reassessed., Other methods: Massage, distraction, decrease stimulus, etc. used PRN. Plan of Care Patient requires physician specializing in physical medicine and rehab oversight to provide close medical supervision of rehab issues including: Pain Management, Sleep Problems, Bowel and Bladder, Medical and co-morbidity Management, DVT prophylaxis, Rehabilitation Leadership, Coordination of treatment team Patient needs Physical Therapy: For a minimum of 1 hour, At least 5 out of 7 days Patient needs Physical Therapy to improve:: Mobility, Mobility, Mobility, Strengthening, Transfers, Stretching, ROM, Endurance, Stairs, Gait, Balance Patient needs Occupational Therapy: For a minimum of 1 hour, At least 5 out of 7 days Patient needs Occupational Therapy to improve ADL's incl.: Eating, Grooming, Bathing, Dressing, Toileting, Toilet transfers, Community Reintegration, Higher functioning activities, Household tasks, Adaptive Equipment, Splinting, Other activities as determined Patient requires 24/7 Rehabilitation Nursing for: Pain Issues, Identifying and preventing risk factors, Monitoring and reporting current medical conditions, Assisting with ambulation, transfer, and all ADL's, Teaching patients about disease process and medications, Family teaching, Providing safe environment, Bowel and Bladder Issues, Skin integrity, Medication Management Patient needs Trap Setter/ Case Management for: Discharge Planning, Arranging Home Equipment or Services, Family Interventions Patient needs Dietary and Nutrition Services for: Adequate Nutrition, Nutritional Supplements, Nutritional Education Goals Patient will remain: free from falls, or injury at time of discharge. Patient will perform bed mobility at: MOD I level of assist. Patient will complete transfers from bed to chair at: MOD I level of assist. Patient will ambulate: with MOD I assist, with LRD, - - 500 feet with WW at Mod I Patient will complete upper body dressing at: MOD I level of assist. Patient will complete lower body dressing at: MOD I level of assist. Patient will complete toileting at: MOD I level of assist. Patient will perform bathing at: MOD I level of assist. Patient will complete grooming at: MOD I level of assist. Patient will complete home management skills at: MOD I level of assist. Patient will achieve: at MOD I assist, with standby assist, - Patient will have pain level of: of 3 or less Patient's skin will: remain intact, free from infection. Patient will receive: adequate nutrition. Discharge Planning Pt Prognosis for Sig. Practical Improv. w/in Reasonable Time: Good Estimated Length of stay (days): 21 Anticipated D/C Destination: Home with Outpt Therapy Was Preadmission Assessment Accurate?: Yes
[2020-04-10 13:13] VITALS: O2SAT 96
[2020-04-10 13:28] LABS: Bacteria 0 SEEN /hpf (None Seen); Mucous, Urine 0 SEEN /hpf (<or=2+); Red Blood Cells-Urine 0 SEEN /hpf (0-5); Squamous Epithelial Cells - UA 0 SEEN /hpf (5-10); White Blood Cells 0 SEEN /hpf (0-5)
[2020-04-10] MEDS: Acetaminophen 500 MG Tablet 1000 MG PO ×2 (13:44→21:01)
[2020-04-10 13:55] LABS: Color, Urine Yellow (Yellow); Glucose, Dipstick Normal (Normal); Ketone-Dipstick Negative (Negative); Leukocyte Esterase-Dipstick Negative /ul (Negative); Nitrite-Dipstick Negative (Negative); Occult Blood-Urine Negative /ul (Negative); Protein-Dipstick Negative (Negative); Urine Bilirubin Dipstick Negative (Negative); Urine Clarity Clear (Clear); Urine Urobilinogen Normal (Normal); Urine pH 6.5 (5.0 - 8.0)
[2020-04-10] MEDS: oxyCODONE 5 MG Tablet PO ×2 (14:43→19:18)
--- NOTE | 2020-04-10 15:56 | CPS ---
started by nursing
[2020-04-10] MEDS: Multivitamins,Therapeutic Tablet 1 TABLET PO (17:35)
[2020-04-10] MEDS: Ferrous Sulfate 325 MG Tablet PO (17:35)
[2020-04-10] MEDS: Aspirin 81 MG TAB.CHEW PO (17:35)
[2020-04-10 19:21] VITALS: BP 146/61; PULSE 91; RESP 16; TEMP 36.9; O2SAT 97
[2020-04-10] MEDS: Atorvastatin Calcium 40 MG Tablet PO (21:01)
[2020-04-11] MEDS: oxyCODONE 5 MG Tablet PO ×5 (02:54→21:50)
[2020-04-11] MEDS: cycloBENZAPRine HCl 10 MG Tablet PO (03:56)
[2020-04-11] MEDS: Acetaminophen 500 MG Tablet 1000 MG PO ×3 (05:48→20:10)
[2020-04-11 06:45] VITALS: O2SAT 91
[2020-04-11 07:37] VITALS: BP 135/75; PULSE 71; RESP 18; TEMP 36.9; O2SAT 95
[2020-04-11] MEDS: Multivitamins,Therapeutic Tablet 1 TABLET PO ×2 (07:50→17:47)
[2020-04-11] MEDS: Aspirin 81 MG TAB.CHEW PO ×2 (07:50→17:47)
[2020-04-11] MEDS: Ferrous Sulfate 325 MG Tablet PO ×2 (07:50→17:47)
[2020-04-11] MEDS: amLODIPine 2.5 MG Tablet PO (07:50)
--- NOTE | 2020-04-11 10:43 | CASEMGMT ---
Social Work Discussed code status with pt. Pt confirmed full code. Cele Blackman, INSTRUCTOR SUBSTITUTE COSMETOLOGY MANAGER PRIMARY
[2020-04-11 19:29] VITALS: BP 118/60; PULSE 82; RESP 16; TEMP 36.6; O2SAT 97
[2020-04-11] MEDS: Senna/Docusate Sodium 1 Tablet 2 TABLET PO (20:10)
[2020-04-11] MEDS: Atorvastatin Calcium 40 MG Tablet PO (20:10)
[2020-04-12] MEDS: cycloBENZAPRine HCl 10 MG Tablet PO ×2 (00:04→22:43)
[2020-04-12] MEDS: traZODone 50 MG Tablet PO (00:16)
[2020-04-12] MEDS: Acetaminophen 500 MG Tablet 1000 MG PO ×3 (06:19→20:31)
[2020-04-12] MEDS: oxyCODONE 5 MG Tablet PO ×3 (07:28→22:42)
[2020-04-12 07:58] VITALS: BP 128/60; PULSE 70; RESP 17; TEMP 36.3; O2SAT 96
[2020-04-12] MEDS: Ferrous Sulfate 325 MG Tablet PO (08:15)
[2020-04-12] MEDS: Senna/Docusate Sodium 1 Tablet 2 TABLET PO (08:15)
[2020-04-12] MEDS: amLODIPine 2.5 MG Tablet PO (08:15)
[2020-04-12] MEDS: Multivitamins,Therapeutic Tablet 1 TABLET PO ×2 (08:15→16:59)
[2020-04-12] MEDS: Aspirin 81 MG TAB.CHEW PO ×2 (08:15→16:59)
--- NOTE | 2020-04-12 10:12 | PCM.PN.BLA ---
Progress Note Afebrile. She had 1 elevated temp and that was at admission and it was 99.9. She has been afebrile since then. VSS-blood pressures well controlled Maintaining appropriate oxygen saturation on RA Good oral intake Last bowel movement was yesterday. Discussed with nursing - no problems that need addressed Reviewed the PT/OT notes. She was able to ambulate 75 feet yesterday with a wheeled walker. Medication list reviewed. She took 5 doses of oxycodone yesterday and 1 dose of Flexeril. She rated her pain as a 7 today while walking and had pain medication 30 minutes prior to Occupational Therapy. She was able to manage her own clothing and hygiene today. the pain is in the R lateral thigh and knee and the lateral calf. It is increased with weight bearing. she has had sciatica a few times in the past. Denies CP, SOB, palpitations, gastroc pain. Alert appropriate Not tachypneic, lungs are clear to auscultation Heart-regular rate and rhythm without ectopy Abdomen-soft, nontender Positive ankle edema on the right Positive straight leg raising on the right Impressions 1. debility post R TKA 2. OA 3. sciatica 4. quadriceps spasm on the R Decrease the iron to daily to prevent severe constipation. She was taking it once daily at home and the Post op HGB was WNL. Start Gabapentin for suspected radiculopathy causing pain in the lateral knee/calf and in the anterior thigh. STROKE Vital Signs/Narrative: Vital Signs Temp Pulse Resp BP Pulse Ox 04/12/20 07:58 97.4 F L 70 17 128/60 H 96 Inpatient E&M: 24897 Subs Hosp L2
[2020-04-12] MEDS: Gabapentin 100 MG Capsule PO ×2 (13:28→16:59)
[2020-04-12 20:06] VITALS: BP 127/67; PULSE 71; RESP 16; TEMP 36.6; O2SAT 96
[2020-04-12] MEDS: Gabapentin 300 MG Capsule PO (20:31)
[2020-04-12] MEDS: Atorvastatin Calcium 40 MG Tablet PO (20:31)
[2020-04-13] MEDS: oxyCODONE 5 MG Tablet PO ×3 (04:06→22:04)
[2020-04-13] MEDS: Acetaminophen 500 MG Tablet 1000 MG PO ×3 (06:05→21:02)
[2020-04-13 07:18] VITALS: BP 120/55; PULSE 69; RESP 16; TEMP 36.4; O2SAT 97
[2020-04-13 08:43] VITALS: O2SAT 97
[2020-04-13] MEDS: cycloBENZAPRine HCl 10 MG Tablet PO ×2 (08:45→22:04)
[2020-04-13] MEDS: Gabapentin 100 MG Capsule PO ×2 (08:46→16:27)
[2020-04-13] MEDS: Multivitamins,Therapeutic Tablet 1 TABLET PO ×2 (08:46→16:27)
[2020-04-13] MEDS: Senna/Docusate Sodium 1 Tablet 2 TABLET PO ×2 (08:46→21:01)
[2020-04-13] MEDS: amLODIPine 2.5 MG Tablet PO (08:46)
[2020-04-13] MEDS: Aspirin 81 MG TAB.CHEW PO ×2 (08:47→16:27)
[2020-04-13] MEDS: Ferrous Sulfate 325 MG Tablet PO (08:47)
[2020-04-13 19:10] VITALS: BP 136/66; PULSE 65; RESP 16; TEMP 36.5; O2SAT 95
[2020-04-13] MEDS: Gabapentin 300 MG Capsule PO (21:01)
[2020-04-13] MEDS: Atorvastatin Calcium 40 MG Tablet PO (21:01)
[2020-04-13 22:00] VITALS: PULSE 68; RESP 16; O2SAT 97
[2020-04-14] MEDS: oxyCODONE 5 MG Tablet PO ×2 (06:38→22:12)
[2020-04-14] MEDS: Acetaminophen 500 MG Tablet 1000 MG PO ×3 (06:38→21:18)
[2020-04-14] MEDS: Multivitamins,Therapeutic Tablet 1 TABLET PO ×2 (07:49→17:35)
[2020-04-14] MEDS: Gabapentin 100 MG Capsule PO ×2 (07:49→17:36)
[2020-04-14] MEDS: Aspirin 81 MG TAB.CHEW PO ×2 (07:49→17:35)
[2020-04-14] MEDS: Ferrous Sulfate 325 MG Tablet PO (07:49)
[2020-04-14] MEDS: amLODIPine 2.5 MG Tablet PO (07:49)
[2020-04-14] MEDS: Senna/Docusate Sodium 1 Tablet 2 TABLET PO ×2 (07:50→21:18)
[2020-04-14] MEDS: cycloBENZAPRine HCl 10 MG Tablet PO ×2 (08:37→22:11)
[2020-04-14 09:01] VITALS: BP 154/64; PULSE 71; RESP 17; TEMP 36.9; O2SAT 97
[2020-04-14 18:59] VITALS: BP 124/60; PULSE 65; RESP 18; TEMP 36.7; O2SAT 97
--- NOTE | 2020-04-14 20:43 | NURSING ---
Pt ambulated unit x1 assist with wheeled walker & gait belt. Pt tolerated well.
[2020-04-14] MEDS: Gabapentin 300 MG Capsule PO (21:18)
[2020-04-14] MEDS: Atorvastatin Calcium 40 MG Tablet PO (21:18)
[2020-04-14 22:00] VITALS: PULSE 65; RESP 16; O2SAT 96
[2020-04-15] MEDS: oxyCODONE 5 MG Tablet PO ×4 (02:44→21:48)
--- NOTE | 2020-04-15 02:48 | NURSING ---
Pt awakened with rt shoulder pain & oxyir prn provided.
[2020-04-15] MEDS: Acetaminophen 500 MG Tablet 1000 MG PO ×3 (06:22→21:48)
[2020-04-15] MEDS: Multivitamins,Therapeutic Tablet 1 TABLET PO ×2 (07:37→17:28)
[2020-04-15] MEDS: Gabapentin 100 MG Capsule PO ×2 (07:37→17:28)
[2020-04-15] MEDS: amLODIPine 2.5 MG Tablet PO (07:37)
[2020-04-15] MEDS: Aspirin 81 MG TAB.CHEW PO ×2 (07:37→17:28)
[2020-04-15] MEDS: Ferrous Sulfate 325 MG Tablet PO (07:38)
[2020-04-15] MEDS: Senna/Docusate Sodium 1 Tablet 2 TABLET PO ×2 (07:39→21:48)
[2020-04-15 07:43] VITALS: BP 110/64; PULSE 62; RESP 18; TEMP 36.4; O2SAT 94
[2020-04-15] MEDS: cycloBENZAPRine HCl 10 MG Tablet PO ×2 (07:49→21:50)
--- NOTE | 2020-04-15 10:29 | CASEMGMT ---
Social Work IDT met with patient and dtr via conference call for Team meeting. Discussed patient's progress in therapy and nursing. See notes for details. The goal is for pt to return home alone. Several family members has own medical issues/surgeries and unable to physically assist pt at home. Explained Medicare approved 14 days with EDC 04/24. Pt and dtr very pleased. Will ReTeam next week. SW to continue to follow to assist with DC planning. Cele lBackman,LUMBER PILER BRANCH RENTAL MANAGER
--- NOTE | 2020-04-15 12:44 | PN_ITS ---
Progress Note Bryanna was seen on team rounds today and her daughter Juana participated by phone. All questions were answered by the team and myself. Afebrile VSS Maintaining appropriate oxygen saturation on RA Oral intake is good Discussed with nursing - no problems that need addressed Reviewed the PT/OT notes Medication list reviewed. Her only complaint today is R shoulder/scapular pain. She is sleeping well since the Gabapentin was started and the pain in the R leg is much more tolerable. MM are moist Lungs - CTA HRRR, no gallop no abd pain with palpation no calf pain with a negative Hom[place] and a negative [place]. no skin breakdown Oxycodone usage is less. Impressions 1. Physical debility secondary to recent right total knee arthroplasty for severe osteoarthritis causing chronic pain and limitation of ambulation 2. Osteoarthritis 3. Sciatica 4. Insomnia 5. Right shoulder pain is likely due to using the R shoulder on the WW to dec rease the weight she is putting on the RLE 6. hx of iron deficiency anemia Try arthritic cream to the R shoulder/scapula rather than increasing the oral medications at this time. continue the Gabapentin Continue Flexeril Continue therapy no need for additional lab at this time Trazodone PRN at HS for insomnia Inpatient E&M: 20111 Subs Hosp L2
[2020-04-15 13:31] VITALS: O2SAT 94
[2020-04-15 21:30] VITALS: BP 121/59; PULSE 73; RESP 16; TEMP 36.9; O2SAT 96
[2020-04-15] MEDS: Gabapentin 300 MG Capsule PO (21:38)
[2020-04-15] MEDS: Atorvastatin Calcium 40 MG Tablet PO (21:48)
[2020-04-15] MEDS: Arthritis Pain Compound 60 CLICK TUBE TOPICAL (21:49)
--- NOTE | 2020-04-16 03:15 | NURSING ---
Reviewed and agree with UROLOGY SURGEON documentation and charting.
[2020-04-16] MEDS: Acetaminophen 500 MG Tablet 1000 MG PO ×3 (05:52→21:26)
[2020-04-16] MEDS: Ferrous Sulfate 325 MG Tablet PO (07:57)
[2020-04-16] MEDS: Aspirin 81 MG TAB.CHEW PO ×2 (07:57→16:59)
[2020-04-16] MEDS: amLODIPine 2.5 MG Tablet PO (07:57)
[2020-04-16] MEDS: cycloBENZAPRine HCl 10 MG Tablet PO ×2 (07:57→21:33)
[2020-04-16] MEDS: Senna/Docusate Sodium 1 Tablet 2 TABLET PO ×2 (07:58→21:26)
[2020-04-16] MEDS: Gabapentin 100 MG Capsule PO ×2 (07:58→17:02)
[2020-04-16] MEDS: Multivitamins,Therapeutic Tablet 1 TABLET PO ×2 (08:01→16:59)
[2020-04-16] MEDS: Arthritis Pain Compound 60 CLICK TUBE TOPICAL ×2 (08:01→21:26)
[2020-04-16] MEDS: oxyCODONE 5 MG Tablet PO ×3 (08:01→21:32)
[2020-04-16 09:11] VITALS: BP 119/59; PULSE 62; RESP 18; TEMP 36.8; O2SAT 95
[2020-04-16] MEDS: Atorvastatin Calcium 40 MG Tablet PO (21:26)
[2020-04-16] MEDS: Gabapentin 300 MG Capsule PO (21:26)
[2020-04-16 21:34] VITALS: BP 135/78; PULSE 67; RESP 17; TEMP 36.6; O2SAT 96
[2020-04-16 22:00] VITALS: PULSE 77; RESP 16; O2SAT 96
[2020-04-17] MEDS: Acetaminophen 500 MG Tablet 1000 MG PO ×3 (05:22→22:18)
[2020-04-17 07:28] VITALS: BP 139/67; PULSE 64; RESP 16; TEMP 36.8; O2SAT 97
[2020-04-17] MEDS: Gabapentin 100 MG Capsule PO (07:49)
[2020-04-17] MEDS: Aspirin 81 MG TAB.CHEW PO ×2 (07:49→17:42)
[2020-04-17] MEDS: Senna/Docusate Sodium 1 Tablet 2 TABLET PO ×2 (07:49→22:19)
[2020-04-17] MEDS: oxyCODONE 5 MG Tablet PO ×3 (07:49→22:18)
[2020-04-17] MEDS: Multivitamins,Therapeutic Tablet 1 TABLET PO ×2 (07:49→17:42)
[2020-04-17] MEDS: cycloBENZAPRine HCl 10 MG Tablet PO ×2 (07:49→22:19)
[2020-04-17] MEDS: amLODIPine 2.5 MG Tablet PO (07:49)
[2020-04-17] MEDS: Ferrous Sulfate 325 MG Tablet PO (07:49)
[2020-04-17] MEDS: Arthritis Pain Compound 60 CLICK TUBE TOPICAL ×2 (07:50→22:19)
--- NOTE | 2020-04-17 09:04 | PCM.PN.BLA ---
Progress Note Afebrile VSS Maintaining appropriate oxygen saturation on RA Oral intake is good Discussed with nursing - no problems that need addressed Reviewed the PT/OT notes Medication list reviewed. She is sleeping well and the pain is adequately controlled. The gabapentin has been effective in controlling pain. She had 3 doses of Oxycodone yesterday. She is also taking the Flexeril usually twice a day. She is still having pain that is less than optimally controlled in the lateral calf and the hamstring and some anterior thigh. The pain got worse with doing SLR exercises in the bed. She denies drowsiness with the day time dose of the Gabapentin. She denies any change in the clarity of her thinking. Denies chest pain, shortness of breath, calf pain, dysuria, N/V, constipation. Alert and oriented x3, appropriate, no apparent distress, sitting in the recliner at the bedside. Mucous membranes are moist Lungs-clear to auscultation Heart-regular rate and rhythm without ectopy, no gallop Abdomen-soft, nontender No calf tenderness Mild right ankle edema Impressions 1. Debility secondary to recent right total knee arthroplasty for severe osteoarthritis restricting her ability to ambulate. 2. Neuralgia 3. VERONIKA on CPAP Increase the daily dose of Gabapentin to 200 mg BID and continue the 300 mg at HS. Continue therapy STROKE Vital Signs/Narrative: Vital Signs Temp Pulse Resp BP Pulse Ox 04/17/20 07:28 98.3 F 64 16 139/67 H 97 Inpatient E&M: 70608 Subs Hosp L2
--- NOTE | 2020-04-17 12:15 | NURSING ---
Left message for Dr Jeffers's clinical assistance requesting permission for Rehab nursing to remove the katie on 04/19 instead of pt having to leave unit for appt. Waiting for return call.
--- NOTE | 2020-04-17 12:29 | NURSING ---
Received call from Gabby in Dr. Coronel's office. Nursing is approved to remove the katie to right knee on 04/19 as long as the site is not reddened.
[2020-04-17] MEDS: Gabapentin 100 MG Capsule 200 MG PO (17:42)
[2020-04-17 19:22] VITALS: BP 118/55; PULSE 68; RESP 16; TEMP 36.3; O2SAT 98
[2020-04-17] MEDS: Gabapentin 300 MG Capsule PO (19:46)
[2020-04-17] MEDS: Atorvastatin Calcium 40 MG Tablet PO (22:19)
[2020-04-18] MEDS: Acetaminophen 500 MG Tablet 1000 MG PO ×3 (06:46→22:10)
[2020-04-18] MEDS: cycloBENZAPRine HCl 10 MG Tablet PO ×2 (06:47→22:20)
[2020-04-18 07:30] VITALS: BP 127/66; PULSE 61; RESP 12; TEMP 36.1; O2SAT 96
[2020-04-18] MEDS: Gabapentin 100 MG Capsule 200 MG PO ×2 (08:30→17:51)
[2020-04-18] MEDS: Ferrous Sulfate 325 MG Tablet PO (08:30)
[2020-04-18] MEDS: Multivitamins,Therapeutic Tablet 1 TABLET PO ×2 (08:30→17:51)
[2020-04-18] MEDS: Aspirin 81 MG TAB.CHEW PO ×2 (08:30→17:51)
[2020-04-18] MEDS: amLODIPine 2.5 MG Tablet PO (08:31)
[2020-04-18] MEDS: Senna/Docusate Sodium 1 Tablet 2 TABLET PO ×2 (08:31→19:50)
[2020-04-18] MEDS: Arthritis Pain Compound 60 CLICK TUBE TOPICAL ×2 (08:31→19:49)
[2020-04-18] MEDS: oxyCODONE 5 MG Tablet PO ×3 (08:35→22:19)
[2020-04-18] MEDS: Gabapentin 300 MG Capsule PO (19:49)
[2020-04-18] MEDS: Atorvastatin Calcium 40 MG Tablet PO (19:50)
[2020-04-18 21:47] VITALS: BP 127/57; PULSE 68; RESP 16; TEMP 36.5; O2SAT 99
[2020-04-19] MEDS: Acetaminophen 500 MG Tablet 1000 MG PO ×3 (05:23→22:03)
[2020-04-19] MEDS: Aspirin 81 MG TAB.CHEW PO ×2 (07:56→17:22)
[2020-04-19] MEDS: Ferrous Sulfate 325 MG Tablet PO (07:56)
[2020-04-19] MEDS: Arthritis Pain Compound 60 CLICK TUBE TOPICAL ×2 (07:56→22:02)
[2020-04-19] MEDS: Gabapentin 100 MG Capsule 200 MG PO ×2 (07:56→17:22)
[2020-04-19] MEDS: Multivitamins,Therapeutic Tablet 1 TABLET PO ×2 (07:56→17:22)
[2020-04-19] MEDS: Senna/Docusate Sodium 1 Tablet 2 TABLET PO ×2 (07:57→22:03)
[2020-04-19] MEDS: amLODIPine 2.5 MG Tablet PO (07:57)
[2020-04-19] MEDS: cycloBENZAPRine HCl 10 MG Tablet PO ×2 (08:00→22:20)
[2020-04-19] MEDS: oxyCODONE 5 MG Tablet PO ×3 (08:00→22:19)
[2020-04-19 10:00] VITALS: BP 130/69; PULSE 69; RESP 18; TEMP 36.3; O2SAT 97
--- NOTE | 2020-04-19 16:14 | NURSING ---
35 katie removed from incision to knee per dr. judy duff. pt tolerated well. no areas noted to be open or draining at this time. will continue to monitor for signs and symptoms of infection.
[2020-04-19 22:00] VITALS: BP 136/63; PULSE 70; RESP 18; TEMP 36.5; O2SAT 96
[2020-04-19] MEDS: Gabapentin 300 MG Capsule PO (22:02)
[2020-04-19] MEDS: Atorvastatin Calcium 40 MG Tablet PO (22:03)
[2020-04-20] MEDS: Acetaminophen 500 MG Tablet 1000 MG PO ×3 (05:28→20:28)
[2020-04-20] MEDS: Multivitamins,Therapeutic Tablet 1 TABLET PO ×2 (09:30→16:50)
[2020-04-20] MEDS: Ferrous Sulfate 325 MG Tablet PO (09:31)
[2020-04-20] MEDS: cycloBENZAPRine HCl 10 MG Tablet PO ×2 (09:31→20:29)
[2020-04-20] MEDS: Gabapentin 100 MG Capsule 200 MG PO ×2 (09:31→16:50)
[2020-04-20] MEDS: Aspirin 81 MG TAB.CHEW PO ×2 (09:31→16:51)
[2020-04-20] MEDS: Arthritis Pain Compound 60 CLICK TUBE TOPICAL ×2 (09:32→20:29)
[2020-04-20] MEDS: amLODIPine 2.5 MG Tablet PO (09:32)
[2020-04-20] MEDS: oxyCODONE 5 MG Tablet PO ×2 (09:33→20:29)
[2020-04-20 10:00] VITALS: BP 129/70; PULSE 68; RESP 16; TEMP 36.2; O2SAT 100
[2020-04-20 18:58] VITALS: BP 135/52; PULSE 68; RESP 17; TEMP 36.6; O2SAT 100
[2020-04-20] MEDS: Gabapentin 300 MG Capsule PO (20:28)
[2020-04-20] MEDS: Atorvastatin Calcium 40 MG Tablet PO (20:28)
[2020-04-21] MEDS: oxyCODONE 5 MG Tablet PO ×3 (03:07→16:07)
[2020-04-21] MEDS: Acetaminophen 500 MG Tablet 1000 MG PO ×3 (06:53→21:14)
[2020-04-21 09:14] VITALS: BP 141/72; PULSE 66; RESP 18; TEMP 36.3; O2SAT 97
[2020-04-21] MEDS: cycloBENZAPRine HCl 10 MG Tablet PO ×2 (09:17→21:14)
[2020-04-21] MEDS: Arthritis Pain Compound 60 CLICK TUBE TOPICAL ×2 (09:18→21:14)
[2020-04-21] MEDS: Ferrous Sulfate 325 MG Tablet PO (09:18)
[2020-04-21] MEDS: Aspirin 81 MG TAB.CHEW PO ×2 (09:18→16:08)
[2020-04-21] MEDS: Gabapentin 100 MG Capsule 200 MG PO ×2 (09:18→16:08)
[2020-04-21] MEDS: amLODIPine 2.5 MG Tablet PO (09:20)
[2020-04-21] MEDS: Multivitamins,Therapeutic Tablet 1 TABLET PO ×2 (09:20→16:08)
--- NOTE | 2020-04-21 10:29 | NURSING ---
pt ambulated to room and assisted onto NuStep x30 minutes, tolerated well.
[2020-04-21] MEDS: Gabapentin 300 MG Capsule PO (20:32)
[2020-04-21] MEDS: Atorvastatin Calcium 40 MG Tablet PO (21:14)
[2020-04-21 21:15] VITALS: BP 122/64; PULSE 75; RESP 16; TEMP 35.8; O2SAT 99
[2020-04-22] MEDS: Acetaminophen 500 MG Tablet 1000 MG PO ×3 (04:37→20:30)
[2020-04-22 07:45] VITALS: BP 122/70; PULSE 70; RESP 16; TEMP 36.9; O2SAT 96
[2020-04-22] MEDS: Aspirin 81 MG TAB.CHEW PO ×2 (08:10→17:06)
[2020-04-22] MEDS: Arthritis Pain Compound 60 CLICK TUBE TOPICAL ×2 (08:10→20:31)
[2020-04-22] MEDS: Multivitamins,Therapeutic Tablet 1 TABLET PO ×2 (08:10→17:06)
[2020-04-22] MEDS: Ferrous Sulfate 325 MG Tablet PO (08:10)
[2020-04-22] MEDS: Gabapentin 100 MG Capsule 200 MG PO (08:10)
[2020-04-22] MEDS: oxyCODONE 5 MG Tablet PO ×3 (08:11→22:00)
[2020-04-22] MEDS: amLODIPine 2.5 MG Tablet PO (08:11)
[2020-04-22] MEDS: Senna/Docusate Sodium 1 Tablet 2 TABLET PO ×2 (08:12→20:30)
--- NOTE | 2020-04-22 10:54 | CASEMGMT ---
Social Work IDT met with patient and dtr via conference call for Team meeting. Discussed patient's progress in therapy and nursing. Pt is mod I for all ADLs. Pt is ready to dC home 04/24 per Medicare. Provided option of HHC and OP PT. Pt okay with outpatient PT. Family can transport. Pt requesting PT at [facility]. Referral made. No DME needs. Dtr to transport. Plan: DC home alone 04/24 with outpatient PT ELLYN Brown
[2020-04-22] MEDS: cycloBENZAPRine HCl 10 MG Tablet PO ×2 (11:08→20:42)
--- NOTE | 2020-04-22 14:25 | PCM.PN.BLA ---
Progress Note Brittany was seen on TEAM rounds today. Her dtr Juana participated by phone. Afebrile VSS-blood pressure is well controlled and heart rate is within normal limits. Maintaining appropriate oxygen saturation on RA Oral intake is good Discussed with nursing - no problems that need addressed Reviewed the PT/OT notes Medication list reviewed. brittany is doing well. Her pain is adequately controlled. she really likes the compounded cream for pain control. She is still using Oxycodone 2-3 times daily but is willing to get down to 5 mg every 4 hours as needed for pain. She has been taking Flexeril 10 mg twice daily for quadricep spasm. Neurontin has been effective in controlling the sciatica pain She denies CP, SOB, palpitations, cough, N/V/constipation. She is happy with her progress and is looking forward to going home on Wednesday. Alert and oriented X 3 Lungs - CTA HRRR abd - soft and NT no calf pain, mild R ankle edema no rashes and no skin breakdown. Impressions 1. Physical debility secondary to severe osteoarthritis of the right knee with recent total knee arthroplasty on 04/08/2020 2. Hypertension-controlled 3. Bilateral posterior tibial tendinitis-continues to wear bilateral splints 4. DVT prophylaxis with aspirin 81 mg twice daily per Ortho Continue therapy Plan discharge for 04/24/2020 Make patient mod I Decrease the oxycodone to 5 mg p.o. every 4 hours as needed pain. Change the gabapentin to 300 mg 3 times daily Inpatient E&M: 69367 Subs Hosp L2
[2020-04-22 20:20] VITALS: PULSE 83; RESP 16; O2SAT 95
[2020-04-22] MEDS: Atorvastatin Calcium 40 MG Tablet PO (20:30)
[2020-04-22] MEDS: Gabapentin 300 MG Capsule PO (20:30)
[2020-04-22 21:01] VITALS: BP 154/75; PULSE 83; RESP 16; TEMP 36.7; O2SAT 95
--- NOTE | 2020-04-23 05:01 | NURSING ---
Reviewed and agree with BOARDMARKER documentation and charting.
[2020-04-23] MEDS: Acetaminophen 500 MG Tablet 1000 MG PO ×3 (06:08→21:08)
[2020-04-23] MEDS: Gabapentin 300 MG Capsule PO ×3 (06:09→21:08)
[2020-04-23 07:09] VITALS: BP 117/65; PULSE 66; RESP 16; TEMP 36.6; O2SAT 96
[2020-04-23] MEDS: oxyCODONE 5 MG Tablet PO ×2 (07:52→21:12)
[2020-04-23] MEDS: Arthritis Pain Compound 60 CLICK TUBE TOPICAL ×2 (07:52→21:07)
[2020-04-23] MEDS: Multivitamins,Therapeutic Tablet 1 TABLET PO ×2 (07:52→17:18)
[2020-04-23] MEDS: amLODIPine 2.5 MG Tablet PO (07:52)
[2020-04-23] MEDS: Ferrous Sulfate 325 MG Tablet PO (07:52)
[2020-04-23] MEDS: Senna/Docusate Sodium 1 Tablet 2 TABLET PO ×2 (07:52→21:09)
[2020-04-23] MEDS: Aspirin 81 MG TAB.CHEW PO ×2 (07:52→17:18)
[2020-04-23] MEDS: cycloBENZAPRine HCl 10 MG Tablet PO ×2 (09:30→21:10)
[2020-04-23 21:00] VITALS: PULSE 79; RESP 16; O2SAT 99
[2020-04-23 21:05] VITALS: BP 137/56; PULSE 79; RESP 16; TEMP 36.6; O2SAT 99
[2020-04-23] MEDS: Atorvastatin Calcium 40 MG Tablet PO (21:08)
--- NOTE | 2020-04-24 01:46 | NURSING ---
Reviewed and agree with BIOMEDICAL ENGINEERING TECHNICIAN documentation and charting.
[2020-04-24] MEDS: Acetaminophen 500 MG Tablet 1000 MG PO ×2 (06:43→13:21)
[2020-04-24] MEDS: Gabapentin 300 MG Capsule PO ×2 (06:43→13:22)
[2020-04-24] MEDS: Aspirin 81 MG TAB.CHEW PO (08:14)
[2020-04-24] MEDS: oxyCODONE 5 MG Tablet PO ×2 (08:14→13:22)
[2020-04-24] MEDS: cycloBENZAPRine HCl 10 MG Tablet PO (08:14)
[2020-04-24] MEDS: amLODIPine 2.5 MG Tablet PO (08:15)
[2020-04-24] MEDS: Ferrous Sulfate 325 MG Tablet PO (08:15)
[2020-04-24] MEDS: Arthritis Pain Compound 60 CLICK TUBE TOPICAL (08:15)
[2020-04-24] MEDS: Multivitamins,Therapeutic Tablet 1 TABLET PO (08:15)
[2020-04-24] MEDS: Senna/Docusate Sodium 1 Tablet 2 TABLET PO (08:15)
[2020-04-24 08:32] VITALS: BP 126/62; PULSE 64; RESP 16; TEMP 36.7; O2SAT 96
--- NOTE | 2020-04-24 09:37 | PCM.DC ---
- Discharge Diagnoses Current Active Problems: Current Active and Chronic Problems (Last Reviewed 04/11/20 @ 11:[address] Margo Rojas, DO) Physical debility (Acute) due to R TKA on 04/08/[address] Coronel Hypertension (Chronic) Coronary artery disease (Chronic) non-obstructive in the LAD on a cardiac cath VERONIKA (obstructive sleep apnea) (Chronic) has CPAP Hiatal hernia (Chronic) GERD (gastroesophageal reflux disease) (Chronic) Obesity (BMI 30-39.9) (Chronic) Osteoarthritis (Chronic) History of peptic ulcer disease (Chronic) Posterior tibial tendinitis of both lower extremities (Acute) has braces for both feet/ankle. Treated by Dr. Ronquillo. Hyperlipidemia (Chronic) She is on Rosuvastatin You will use the following diet at home:: Cardiac - Low fat and low salt with increased protein for the next 6 weeks to help heal the incision Discharge Activity: May Not Drive - until released by Dr. Coronel or the PT to do so., May not drive while taking narcotic pain medications., May Shower, - - No kneeling Weight Bearing Status: Full weight bearing Keep extremity elevated above heart level: Right Leg Call your doctor if your incision/area has: Continuous Slow Oozing, Sudden Increased Bleeding, Increased Pain/ Swelling, Increased Redness, Foul Smelling Discharge, Swelling at the incision site Call your doctor if you observe: Fever of 101 or Higher, Numbness or Tingling, Inability to have a bowel movement, Shortness of breath, Dizziness, Fainting spells, Chest pain, Increased palpitations (irregular heartbeat), Calf discomfort, Uncontrolled pain, - - DO NOT use alcohol with narcotic pain medication. DO NOT make important decisions while taking narcotic medication. Do not drive while taking narcotic medication. If you have problems while taking your medication (rash, itching, nausea etc.) call your primary care doctor. Suture Line Care: Avoid Pulling/Pushing, Avoid Pinching/Bending Cleanse incision/area with: Soap & Water, - - Do not soak the incision......OK to shower, no tub baths Instructions: Understanding Knee Replacement, After Knee Replacement: Back at Home, After Knee Replacement: The First Month Additional Instructions: 1. You are doing very well. I have given you a handout on preparing the house to prevent falls and tripping. Remember to do your exercises given to you by the therapists twice a day every day......you can take Wednesday off if you would like. Do not sit for longer than an hour without stretching or taking a walk to loosen things up. ICE is your friend. It helps to control pain and swelling. I recommend you continue to ice and elevate your knee after exercise. Continue to use the walker when you are out and about in the community......it increases your stability, taylor when sidewalks and steps are icy and covered with snow. 2. It has been a pleasure getting to know you Brittany. I am so glad we were able to help with your recovery and with pain control. Dr. Coronel will take the sutures out on your appt Wednesday. I faxed your prescriptions to [facility] in [place] on 04/23/20 so they should be ready for you when you get there. If you have any questions following discharge or we can help you in any way please call me at my office [phone] or on my cell [phone]. You could also call the rehab unit at [phone]. Take care of yourself. I hope the rest of your family does well with their recent surgeries........you keep active but, don't overdo. Pending Tests on Discharge: none Allergies/Adverse Reactions: Allergies meperidine Adverse Reaction (Verified 03/25/20 10:49) GI Upset NSAIDS (Non-Steroidal Anti-Inflamma Adverse Reaction (Verified 03/25/20 10:49) GI Upset Medications to take at Discharge melatonin 10 mg capsule 10 mg PO HS 03/01/19 omeprazole 20 mg capsule,delayed release 20 mg PO DAILY 03/01/19 zinc gluconate 30 mg tablet 30 mg PO DAILY 03/01/19 Amlodipine [Norvasc] 2.5 mg PO DAILY 03/25/20 Cholecalciferol (Vitamin D3) [Vitamin D3] 15 ml PO DAILY 03/25/20 Multivitamin 1 ea PO BID 03/25/20 Rosuvastatin Calcium 20 mg PO QHS 03/25/20 Aspirin [Aspirin, Baby] 81 mg PO BIDCM 04/10/20 Ondansetron [Zofran] 4 mg PO Q8H PRN PRN 04/10/20 Senna/Docusate Sodium [Senokot-S] 2 tab PO BID 04/10/20 Acetaminophen [Tylenol] 1,000 mg PO Q8 PRN #0 04/23/20 Arthritis Pain Compound 0 click TOPICAL BID gm 04/23/20 Cyclobenzaprine HCl 10 mg PO PRN PRN #40 tab 04/23/20 Ferrous Sulfate 325 mg PO DAILYCM tab 04/23/20 Gabapentin [Neurontin] 300 mg PO TID #90 cap 04/23/20 Oxycodone [Oxyir] 5 mg PO Q4H PRN PRN 7 Days #42 tab 04/23/20 Saliva Substitute [Biotene] 15 ml MM 5X/DAY PRN bottle 04/23/20 The following prescriptions were given: Cyclobenzaprine HCl 10 mg PO PRN PRN #40 tab PRN Reason: muscle discomfort Transmission Status: Re[facility] by [id number] Gabapentin [Neurontin] 300 mg PO TID #90 cap Transmission Status: Re[facility] by [id number] Oxycodone [Oxyir] 5 mg PO Q4H PRN PRN 7 Days #42 tab PRN Reason: Pain Score 4-10 Transmission Status: Received by [id number] Primary Care Physician: Johana Hinton MD [Primary Care Provider] - Test Results: Test results from this visit will be discussed in further detail at your follow-up appointment, if applicable. Please Follow Up With: Dr. Hinton When: Wednesday Please Follow Up With: Graham Coronel DO When: Wednesday Proposed Discharge Date: 04/24/20
[2020-04-24 10:10] VITALS: BP 126/62; PULSE 64; RESP 16; TEMP 36.7; O2SAT 96
--- NOTE | 2020-04-24 10:11 | PCM.DC.SUM ---
Discharge Date and Diagnosis - Problem List Patient Problems: Active and Suspected Problems (Last Reviewed 04/11/20 @ 11:[address] Margo Rojas DO) Physical debility (Acute) due to R TKA on 04/08/[address] Coronel Date of Admission: 04/10/20 Date of Discharge: 04/24/20 - Primary Discharge Diagnosis Acute Problems: Active Problems (Last Reviewed 04/11/20 @ 11:[address] Margo Rojas DO) Physical debility (Acute) due to R TKA on 04/08/[address] Coronel for severe OA limiting her ability to ambulate due to intractable pain Radicular pain RLE R Quadriceps spasm Insomnia R shoulder and scapular pain due to strain from leaning heavily on the WW. - Secondary Discharge Diagnosis Chronic Problems: Chronic Problems (Last Reviewed 04/11/20 @ 11:[address] Margo Rojas DO) Hypertension (Chronic) Coronary artery disease (Chronic) non-obstructive in the LAD on a cardiac cath VERONIKA (obstructive sleep apnea) (Chronic) has CPAP Hiatal hernia (Chronic) GERD (gastroesophageal reflux disease) (Chronic) Obesity (BMI 30-39.9) (Chronic) Osteoarthritis (Chronic) History of peptic ulcer disease (Chronic) Posterior tibial tendinitis of both lower extremities (Chronic) has braces for both feet/ankle. Treated by Dr. Ronquillo. HTN Chest pain (Chronic) Premature ventricular contractions (Chronic) Hyperlipidemia (Chronic) She is on Rosuvastatin Hospital Course and Treatment Imaging Results: Laboratory Last Values Urine Color Yellow (Yellow) 04/10/20 01:00 Urine Clarity Clear (Clear) 04/10/20 01:00 Urine pH 6.5 (5.0 - 8.0) 04/10/20 01:00 Ur Specific [place] 1.010 (1.002-1.030) 04/10/20 01:00 Urine Protein Negative mg/dl (Negative) 04/10/20 01:00 Urine Glucose (UA) Normal mg/dl (Normal) 04/10/20 01:00 Urine Ketones Negative mg/dl (Negative) 04/10/20 01:00 Urine Occult Blood Negative /ul (Negative) 04/10/20 01:00 Urine Nitrite Negative (Negative) 04/10/20 01:00 Urine Bilirubin Negative mg/dL (Negative) 04/10/20 01:00 Urine Urobilinogen Normal mg/dl (Normal) 04/10/20 01:00 Ur Leukocyte Esterase Negative /ul (Negative) 04/10/20 01:00 Urine RBC 0 SEEN /hpf (0-5) 04/10/20 01:00 Urine WBC 0 SEEN /hpf (0-5) 04/10/20 01:00 Ur Squamous Epith Cells 0 SEEN /hpf (5-10) 04/10/20 01:00 Urine Bacteria 0 SEEN /hpf (None Seen) 04/10/20 01:00 Urine Mucus 0 SEEN /hpf (<or=2+) 04/10/20 01:00 none Operations: total knee replacement - 04/08/[address] Coronel prior to transfer to acute rehab Procedures: None Summary of Care Provided: Bryanna Wolf is a 74 year old F with a past medical history of hypertension, hyperlipidemia, nonobstructive coronary artery disease in the LAD, obstructive sleep apnea on CPAP, obesity, hiatal hernia, GERD, history of peptic ulcer disease, bilateral posterior tibial tendinitis and osteoarthritis who underwent a right total knee replacement on 04/08/[address] Graham Coronel. Postoperative course was unremarkable. She was admitted to the inpatient acute rehab unit at [facility] on 04/10/2028 for greater than 3 hours of therapy daily to restore her at or near her prior level of function. Prior to surgery she ambulated without an assistive device, drove and completed all her basic self-care and home management tasks. She has children in the area but, they are not able to provide care at home at this time due to their own medical problems. She had insomnia early in the admission to rehab due to uncontrolled pain. She was taking scheduled acetaminophen and as needed oxycodone but continued to have pain in the right lateral hip, right lateral thigh, right lateral knee and the right lateral calf. She was started on Gabapentin with good relief of pain. She has had sciatica in the past on occasion and she was discharged with a RX for Gabapentin. She also c/o pain in the R shoulder and scapula and I suspect this was due to leaning heavily on the WW early in her therapy because the R leg was very painful. We prescribed a compounded cream containing Lidocaine, Voltaren and Baclofen and this was effective and has no systemic side effects. She requested a RX at [facility] for the cream and we gave her a RX with 3 RF's. One day prior to DC she was taking only one 5 mg tab of Oxycodone twice a day. Brittany was discharged on 04/24/20 in good condition. She elected to have OP PT post discharge. She will follow up with Dr. Coronel on Wednesday and with her PCP, Dr. Hinton on Wednesday. [] Alert and oriented x3, appropriate, no apparent distress, sitting in the recliner at the bedside. Has been Mod I for 2 days with no incidents. Walking in the halls with the WW and no LOB Mucous membranes are moist Lungs-clear to auscultation Heart-regular rate and rhythm without ectopy, no gallop Abdomen-soft, nontender, good bowel function No calf tenderness. the R calf is soft and she has a negative Lauren's sign Minimal right ankle edema The incision in intact with no dehiscence, no DC and no erythema. She has been massaging the area around the incision and it is soft. The katie have been removed. Neuro exam is non-focal This note was generated with [employer] dictation software. It may contain incorrect words, spelling, and punctuation that were not noted in checking the note before signing. Patient Problems: Active and Suspected Problems (Last Reviewed 04/11/20 @ 11:[address] Margo Rojas, ) Physical debility (Acute) due to R TKA on 04/08/[address] Coronel - Physical Exam Vitals/I&O's: Vital Signs Temp Pulse Resp BP Pulse Ox 98.0 F 64 16 126/62 H 96 04/24/20 08:32 04/24/20 08:32 04/24/20 08:32 04/24/20 08:32 04/24/20 08:32 Oxygen Delivery Method Room Air Weight: 216 lb 4.375 oz Body Mass Index (BMI) 40.2 Intake and Output for Last 24 Hours 04/22/20 04/23/20 04/24/20 23:59 23:59 23:59 Intake Total 1240 / 1240 1440 / 1440 360 / 360 Balance 1240 / 1240 1440 / 1440 360 / 360 Current Medications Acetaminophen (Acetaminophen 500 Mg Tablet) 1,000 mg PO Q8 [facility] Last Admin: 04/24/20 06:43 Dose: 1,000 mg Documented by: Amlodipine Besylate (Amlodipine 2.5 Mg Tablet) 2.5 mg PO DAILY [facility] Last Admin: 04/24/20 08:15 Dose: 2.5 mg Documented by: Aspirin ([facility] 81 Mg [facility].Chew) [facility] Last Admin: 04/24/20 08:14 Dose: 81 mg Documented by: Atorvastatin Calcium (Atorvastatin Calcium 40 Mg Tablet) 40 mg PO QHS [facility] Last Admin: 04/23/20 21:08 Dose: 40 mg Documented by: Bisacodyl (Bisacodyl 10 Mg Suppository) 10 mg RECTAL .PRN X 1 PRN PRN Reason: Constipation Compound Med (Arthritis Pain Compound 60 Click Tube) 0 click TOPICAL BID [facility]; Protocol Last Admin: 04/24/20 08:15 Dose: 2 click Documented by: Cyclobenzaprine HCl (Cyclobenzaprine Hcl 10 Mg Tablet) 5 - 10 mg PO Q8H PRN PRN PRN Reason: muscle discomfort Last Admin: 04/24/20 08:14 Dose: 10 mg Documented by: Ferrous Sulfate (Ferrous Sulfate 325 Mg Tablet) [facility] Last Admin: 04/24/20 08:15 Dose: 325 mg Documented by: Gabapentin (Gabapentin 300 Mg Capsule) 300 mg PO TID [facility] Last Admin: 04/24/20 06:43 Dose: 300 mg Documented by: Magnesium Hydroxide (Magnesium Hydroxide 30 Ml Udc) 30 ml PO .PRN X 1 PRN PRN Reason: Constipation Multivitamins (Multivitamins,Therapeutic Tablet) [facility] Last Admin: 04/24/20 08:15 Dose: 1 tablet Documented by: Ondansetron HCl (Ondansetron Odt 4 Mg Tablet) 4 mg PO Q8H PRN PRN PRN Reason: NAUSEA Oxycodone HCl (Oxycodone 5 Mg Tablet) 5 mg PO Q4H PRN PRN PRN Reason: Pain Score 4-10 Last Admin: 04/24/20 08:14 Dose: 5 mg Documented by: Saliva Substitute (Saliva Substitute 237 Ml Bottle) 15 ml MM 5X/DAY PRN PRN Reason: DRY MOUTH Senna/Docusate Sodium (Senna/Docusate Sodium 1 Tablet) 2 tablet PO BID [facility] Last Admin: 02/10/21 08:15 Dose: 2 tablet Documented by: Trazodone HCl (Trazodone 50 Mg Tablet) 50 mg PO QHS PRN PRN Reason: INSOMNIA Last Admin: 04/12/20 00:16 Dose: 50 mg Documented by: Discharge Activity: May Not Drive - until released by Dr. Coronel or the PT to do so., May not drive while taking narcotic pain medications., May Shower, - - No kneeling Weight Bearing Status: Full weight bearing Keep extremity elevated above heart level: Right Leg Call your doctor if your incision/area has: Continuous Slow Oozing, Sudden Increased Bleeding, Increased Pain/ Swelling, Increased Redness, Foul Smelling Discharge, Swelling at the incision site Call your doctor if you observe: Fever of 101 or Higher, Numbness or Tingling, Inability to have a bowel movement, Shortness of breath, Dizziness, Fainting spells, Chest pain, Increased palpitations (irregular heartbeat), Calf discomfort, Uncontrolled pain, - - DO NOT use alcohol with narcotic pain medication. DO NOT make important decisions while taking narcotic medication. Do not drive while taking narcotic medication. If you have problems while taking your medication (rash, itching, nausea etc.) call your primary care doctor. Suture Line Care: Avoid Pulling/Pushing, Avoid Pinching/Bending Cleanse incision/area with: Soap & Water, - - Do not soak the incision......OK to shower, no tub baths Home Medications: Medications to take at Discharge melatonin 10 mg capsule 10 mg PO HS 03/01/19 omeprazole 20 mg capsule,delayed release 20 mg PO DAILY 03/01/19 zinc gluconate 30 mg tablet 30 mg PO DAILY 03/01/19 Amlodipine [Norvasc] 2.5 mg PO DAILY 03/25/20 Cholecalciferol (Vitamin D3) [Vitamin D3] 15 ml PO DAILY 03/25/20 Multivitamin 1 ea PO BID 03/25/20 Rosuvastatin Calcium 20 mg PO QHS 03/25/20 Aspirin [Aspirin, Baby] 81 mg PO BIDCM 04/10/20 Ondansetron [Zofran] 4 mg PO Q8H PRN PRN 04/10/20 Senna/Docusate Sodium [Senokot-S] 2 tab PO BID 04/10/20 Acetaminophen [Tylenol] 1,000 mg PO Q8 PRN #0 04/23/20 Arthritis Pain Compound 0 click TOPICAL BID gm 04/23/20 Cyclobenzaprine HCl 10 mg PO PRN PRN #40 tab 04/23/20 Ferrous Sulfate 325 mg PO DAILYCM tab 04/23/20 Gabapentin [Neurontin] 300 mg PO TID #90 cap 04/23/20 Oxycodone [Oxyir] 5 mg PO Q4H PRN PRN 7 Days #42 tab 04/23/20 Saliva Substitute [Biotene] 15 ml MM 5X/DAY PRN bottle 04/23/20 Following Prescriptions Were Given to Patient: Cyclobenzaprine HCl 10 mg PO PRN PRN #40 tab PRN Reason: muscle discomfort Transmission Status: [id number] Gabapentin [Neurontin] 300 mg PO TID #90 cap Transmission Status: Re[id number] Oxycodone [Oxyir] 5 mg PO Q4H PRN PRN 7 Days #42 tab PRN Reason: Pain Score 4-10 Transmission Status: Re[id number] Primary Care Physician: Johana Hinton MD [Primary Care Provider] - Please Follow Up With: Dr. Hinton When: Wednesday Please Follow Up With: Graham Coronel DO When: Wednesday Patient Instructions: Understanding Knee Replacement, After Knee Replacement: Back at Home, After Knee Replacement: The First Month Disposition: Home - with OP PT Minutes spent on discharge:: 35 Patient Condition:: Good Medical Necessity - Tobacco Use Smoking Status: Never smoker Tobacco Use: Non-smoker Meaningful Use Info Meaningful Use Diagnoses (Choose all that apply): None applicable Inpatient E&M: 35202 Disch Hosp
== END 2020-04-24 14:45 | disposition home or self-care (01) | DRG 560 ==
PROVIDERS: Admitting Provider Internal Medicine; PCP Internal Medicine; Visit Provider Internal Medicine
DX: Z47.1 Aftercare following joint replacement surgery (principal); Z68.41 Body mass index [BMI] 40.0-44.9, adult; Z96.651 Presence of right artificial knee joint; E78.5 Hyperlipidemia, unspecified; G47.33 Obstructive sleep apnea (adult) (pediatric); K21.9 Gastro-esophageal reflux disease without esophagitis; E66.9 Obesity, unspecified; I10 Essential (primary) hypertension; I25.10 Atherosclerotic heart disease of native coronary artery without angina pectoris; K44.9 Diaphragmatic hernia without obstruction or gangrene; D50.9 Iron deficiency anemia, unspecified; N39.3 Stress incontinence (female) (male); M76.829 Posterior tibial tendinitis, unspecified leg
CPT/HCPCS: 81001; 97110; 97116; 97162; 97166; 97530; 97535; 97802; 99251; G0463